=== PATIENT | male | born 1960 | race Caucasian/White ===

== ENCOUNTER 2021-09-29 12:27 | Inpatient (IN) | payer MEDICARE, SELFPAY ==
[2021-09-29 13:21] VITALS: BP 125/81; PULSE 88; RESP 20; TEMP 36.8; O2SAT 98
[2021-09-29 13:22] VITALS: BMI 22.6
[2021-09-29 14:00] VITALS: TEMP 36.8
--- NOTE | 2021-09-29 15:15 | PC.ADMIT ---
4661 S Admission Note: The patient,Agusto Madrid,60 y/o, was given written information regarding hospital policies, unit procedures and contact persons. Patient's smoking status: . Vital Signs - 8 hr 09/29/21 13:21 09/29/21 14:00 Temperature 98.2 F 98.2 F Pulse Rate 88 Respiratory Rate 20 H Blood Pressure 125/81 Pulse Oximetry 98 ADMITTED TO NPU FROM [facility]IA [facility] AND [facility]RETCHER. PT. STATES I'M HERE BECAUSE PEOPLE HAVE BEEN FOLLOWING FOR 5 YEARS AND I WANT THEM TO STOP. MY SISTER THINKS I'M LYING AND SENT ME OUT HERE ON A BUS. PT REPORTS HE IS ORIGINALLY FROM [place] AND JUST MOVED TO [facility] RECENTLY. PT STATES HE HAS USED DRUGS AND ALCOHOL FOR 45 YEARS AND NEVER HAD ANY INTENTION TO QUIT UNTIL NOW. PT IS NOTED TO HAVE MUMBLED SPEECH, EDENTULOUS AND VERY DIFFICULT TO UNDERSTAND. UDS WAS NEGATIVE. HE REPORTS HE LAST USED METH AND THC ONE DAY AGO. ORIENTATED TO UNIT. ALL QUESTIONS ANSWERED AND SUPPORT VOICED.
[2021-09-29] MEDS: OLANZapine 5 mg ODT PO (17:11)
--- NOTE | 2021-09-29 17:16 | PC.NURSE ---
PRN MEDICATIONS PT REPORTS ANXIETY AND IS VISIBLY ANXIOUS. ZYDIS 5 MG GIVEN ORDERED.
[2021-09-29 18:07] VITALS: PULSE 92; RESP 18; O2SAT 93
--- NOTE | 2021-09-29 18:08 | PC.NURSE ---
NEW ORDER PT TO NURSES STATION TO REPORT HE TAKES ALBUTEROL, NEBULIZERS AND IBUPROFEN. REPORTS THE IBUPROFEN IS FOR HIS ARTHRITIS AND ALBUTEROL AND NEBULIZERS FOR HIS COPD. NOTIFIED DR. REICH OF ABOVE. NEW ORDERS RECEIVED FOR RESPIRATORY ASSESS AND TREAT, ALBUTEROL 2 PUFFS Q 4 HOUR PRN SOD AND IBUPROFEN 600 MG 1 TAB PO Q 6HOURS PRN PAIN. NOTIFIED RESPIRATORY THERAPY AND HERE TO ASSESS. NEW ORDERS PLACED. PT NOTIFIED OF NEW ORDERS. ALL QUESTIONS ANSWERED AND SUPPORT VOICED.
[2021-09-29 20:23] VITALS: BP 118/78; PULSE 90; RESP 18; O2SAT 94
[2021-09-29] MEDS: trazodone 50 mg Tablet PO (20:53)
--- NOTE | 2021-09-29 21:31 | PC.NURSE ---
PT IN ROOM MOSTLY. CALM UPON APPROACH. REPORTS AH. REQUESTED AND TOOK PRN TRAZODONE FOR SLEEP.
[2021-09-30] MEDS: hyDROXYzine 25 mg Capsule 50 MG PO ×2 (01:22→08:42)
[2021-09-30 06:00] VITALS: BP 122/74; PULSE 81; RESP 18; O2SAT 98
[2021-09-30 09:29] VITALS: PULSE 89; RESP 17; O2SAT 97
[2021-09-30] MEDS: albuterol 8 gm MDI 2 PUFF INHALATION ×2 (09:29→11:15)
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
[2021-09-30 11:15] VITALS: PULSE 79; RESP 17; O2SAT 97
[2021-09-30 13:29] VITALS: BP 96/53; PULSE 73; RESP 18; TEMP 36.3; O2SAT 97
[2021-09-30] MEDS: OLANZapine 5 mg ODT PO (15:14)
[2021-09-30 20:10] VITALS: BP 128/78; PULSE 97; RESP 17; TEMP 36.6; O2SAT 96
[2021-09-30] MEDS: trazodone 50 mg Tablet PO (20:20)
[2021-10-01 05:24] VITALS: BMI 23.9
[2021-10-01 06:00] VITALS: BP 107/73; PULSE 80; RESP 16; TEMP 36.7; O2SAT 93
[2021-10-01] MEDS: ibuprofen 600 mg Tablet PO (06:22)
[2021-10-01] MEDS: hyDROXYzine 25 mg Capsule 50 MG PO ×3 (06:22→20:39)
[2021-10-01] MEDS: paliperidone ER 6 mg Tablet PO (09:04)
[2021-10-01 09:30] VITALS: PULSE 83; RESP 18; O2SAT 93
[2021-10-01] MEDS: albuterol 8 gm MDI 2 PUFF INHALATION (09:30)
[2021-10-01] MEDS: OLANZapine 5 mg ODT PO ×2 (12:05→23:41)
--- NOTE | 2021-10-01 12:08 | PC.NURSE ---
PRN PATIENT CAME TO NURSES STATION COMPLAINING OF ANXIETY. ZYDIS GIVEN.
[2021-10-01 14:00] VITALS: BP 117/78; PULSE 83; RESP 20; TEMP 36.6; O2SAT 94
--- NOTE | 2021-10-01 14:21 | W.PM.NPUPNS ---
Subjective NPU Subjective: Patient resents today reporting that he did okay with the Invega. He seems to be somewhat confused about the situation with his house and his family members. He denied any side effects or any other concerns. He reports that he is eating and sleeping okay and denies any other issues of concern. Mental Status Exam MSE Comments: This is a well nourished, well developed white male in hospital scrubs with adequate grooming and eye contact. No abnormal movements except for mild psychomotor agitation. Mostly cooperative with exam in mild distress. Speech was mumbly and normal rate and volume. Mood described as okay, affect slightly subdued still confused. Thought process, organized. Thought content: patient denies any suicidal or homicidal ideation, he endorses paranoia but no other delusions noted, and denies any current auditory or visual hallucinations but does report auditory hallucinations occasionally. Attention and concentration are intact and memory is reliable but none were formally tested. He is alert and oriented three times. Insight and judgment are fair. Impulse control is limited. Vitals/I&O/Wt Last Vital Signs Temp 98.0 F 10/01/21 06:00 Pulse 83 10/01/21 09:30 Resp 18 10/01/21 09:30 BP 107/73 10/01/21 06:00 Pulse Ox 93 10/01/21 09:30 Weight last 48 hrs Weight 67.245 kg A&P Assessment and plan (1) Psychosis: Status: Acute (2) Methamphetamine use disorder, severe: Status: Acute (3) Major depressive disorder: Status: Acute (4) PTSD (post-traumatic stress disorder): Status: Acute Plan This is a 60 year old white male with a long history of trauma, addiction which is active, and depression as well as significant legal history who presents off of his medications, open to restarting medications. Continue current medications. Will started Invega 6 mg po qam and monitor for improvement and consideration for restarting other medications. Encourage individual, group and milieu therapy Continue q-15 minute check for safety Recommend sober living treatment at the highest level of care to which the patient is willing to commit. Involuntary Hold Information 96 Hour Hold: 96 Hour Involuntary Admission: No Attestations NPU Medical Necessity Statement*: Inpatient hospitalization is medically necessary and the clinically appropriate intervention at this time. We will monitor medications and make changes as indicated. Likely length of stay is three to five days. Coding Level of Care Code Acute Electric Welder Helper for g Fwd Diagnoses Psychosis F29 Methamphetamine use disorder, severe F15.20 Major depressive disorder F32.9 PTSD (post-traumatic stress disorder) F43.10
[2021-10-01 20:02] VITALS: BP 112/77; PULSE 84; RESP 20; TEMP 36.7; O2SAT 96
[2021-10-01] MEDS: trazodone 50 mg Tablet PO (20:40)
--- NOTE | 2021-10-01 21:50 | PC.NURSE ---
Pt came to the nurses desk at 2039 requesting his night meds. when advised he did not have any scheduled night meds, pt stated he had been getting meds for anxiety and sleep. pt was then advised that, yes, that he has meds available to given him, he would have to ask for them as they are PRN meds. Trazodone 50mg po and Vistaril 50mg po given at 2039. Pt is resting quietly at this time.
--- NOTE | 2021-10-01 23:42 | PC.NURSE ---
PT CAME TO NURSES DESK REQUESTING ADDITION ANXIETY MED. ZYPREXA ZYDIS 5MG SL GIVEN.
[2021-10-02 06:00] VITALS: BP 113/78; PULSE 97; RESP 16; TEMP 36.4; O2SAT 94
[2021-10-02] MEDS: hyDROXYzine 25 mg Capsule 50 MG PO ×2 (06:34→11:24)
[2021-10-02] MEDS: paliperidone ER 6 mg Tablet PO (08:09)
[2021-10-02 10:18] VITALS: PULSE 76; RESP 17; O2SAT 96
[2021-10-02] MEDS: albuterol 8 gm MDI 2 PUFF INHALATION ×3 (10:18→21:24)
[2021-10-02 14:00] VITALS: BP 104/72; PULSE 92; RESP 17; TEMP 36.7; O2SAT 96
[2021-10-02 15:41] VITALS: PULSE 92; RESP 17; O2SAT 97
[2021-10-02] MEDS: ibuprofen 600 mg Tablet PO (16:16)
[2021-10-02] MEDS: OLANZapine 5 mg ODT PO (16:17)
--- NOTE | 2021-10-02 16:18 | PC.NURSE ---
PPRN MEDICATIONS PT C/O ANXIETY THROUGHOUT THE DAY. RECEIVED VISTARIL ORDERED THEN LAID DOWN THE MAJORITY OF THE DAY THIS AFTERNOON REPORTED HE WAS ANXIOUS AGAIN AND NEEDED SOMETHING FOR ANXIETY. ZYDIS 5 MG GIVEN ORDERED.
--- NOTE | 2021-10-02 17:10 | P.NPUPN_ITS ---
Subjective NPU Subjective: This is a well nourished, well developed white male in hospital scrubs with adequate grooming and eye contact. No abnormal movements except for mild psychomotor agitation. Mostly cooperative with exam in mild distress. Speech was mumbly and normal rate and volume. Mood described as a little better, affect slightly subdued and still confused.? Thought process, organized. Thought content: patient denies any suicidal or homicidal ideation, he endorses paranoia but no other delusions noted, and denies any current auditory or visual hallucinations but does report auditory hallucinations occasionally. Attention and concentration are intact and memory is reliable but none were formally teste d. He is alert and oriented three times. Insight and judgment are fair. Impulse control is limited. Vitals/I&O/Wt Last Vital Signs Temp 98.0 F 10/02/21 14:00 Pulse 92 10/02/21 15:41 Resp 17 10/02/21 15:41 BP 104/72 10/02/21 14:00 Pulse Ox 97 10/02/21 15:41 Weight last 48 hrs Weight 67.245 kg A&P Assessment and plan (1) PTSD (post-traumatic stress disorder): Status: Acute (2) Major depressive disorder: Status: Acute (3) Methamphetamine use disorder, severe: Status: Acute (4) Psychosis: Status: Acute Plan This is a 60 year old white male with a long history of trauma, addiction which is active, and depression as well as significant legal history who presents off of his medications, open to restarting medications. Continue current medications. We started Invega 6 mg po qam and monitor for improvement and consideration for restarting other medications. Encourage individual, group and milieu therapy Continue q-15 minute check for safety Recommend sober living treatment at the highest level of care to which the patient is willing to commit. Involuntary Hold Information 96 Hour Hold: 96 Hour Involuntary Admission: No Attestations NPU Medical Necessity Statement*: Inpatient hospitalization is medically necessary and the clinically appropriate intervention at this time. We will monitor medications and make changes as indicated. Likely length of stay is 2-4 days. Coding Level of Care Code Acute Nursing Surgical Services Director for Arnaldo Antoine Diagnoses PTSD (post-traumatic stress disorder) F43.10 Major depressive disorder F32.9 Methamphetamine use disorder, severe F15.20 Psychosis F29
[2021-10-02 20:13] VITALS: BP 100/66; PULSE 78; RESP 20; TEMP 36.4; O2SAT 96
[2021-10-02] MEDS: trazodone 50 mg Tablet PO (20:20)
[2021-10-02 21:25] VITALS: PULSE 86; RESP 16; O2SAT 96
[2021-10-03 06:00] VITALS: BP 121/82; PULSE 105; RESP 16; TEMP 36.6; O2SAT 94
[2021-10-03] MEDS: hyDROXYzine 25 mg Capsule 50 MG PO ×3 (06:54→19:47)
[2021-10-03] MEDS: ibuprofen 600 mg Tablet PO ×2 (06:54→13:00)
[2021-10-03] MEDS: paliperidone ER 6 mg Tablet PO (08:27)
[2021-10-03] MEDS: albuterol 8 gm MDI 2 PUFF INHALATION ×2 (08:55→21:58)
[2021-10-03 08:58] VITALS: PULSE 105; RESP 16; O2SAT 94
--- NOTE | 2021-10-03 13:01 | PC.NURSE ---
PRN VISTARIL 50 MG GIVEN PO PER PT C/O STATED ANXIETY
[2021-10-03 13:51] VITALS: BP 108/71; PULSE 93; RESP 17; TEMP 36.3; O2SAT 93
--- NOTE | 2021-10-03 16:50 | W.PM.NPUPNS ---
Subjective NPU Subjective: Patient resents today reporting that he is having no side effects from the Invega and reports he feels that it works really well for him. He reports a desire to get connected with his supports in the community where he was and denies any current concerns. We discussed the Invega Sustenna injection and the possibility of using that to assist in his adherence and he understood but is currently not interested in injection at this time. We agreed that we would work with the social work team in the morning and identify if there is a place for him to return to consider that in the next 48 hours. Mental Status Exam MSE Comments: This is a well nourished, well developed white male in hospital scrubs with adequate grooming and eye contact. No abnormal movements except for mild psychomotor agitation. Mostly cooperative with exam in mild distress. Speech was mumbly and normal rate and volume. Mood described as I feel better now, affect slightly subdued and less confused.? Thought process, organized. Thought content: patient denies any suicidal or homicidal ideation, he endorses paranoia but no other delusions noted, and denies any current auditory or visual hallucinations but does report auditory hallucinations occasionally. Attention and concentration are intact and memory is reliable but none were formally tested. He is alert and oriented three times. Insight and judgment are fair. Impulse control is limited. Vitals/I&O/Wt Last Vital Signs Temp 97.3 F L 10/03/21 13:51 Pulse 93 10/03/21 13:51 Resp 17 10/03/21 13:51 BP 108/71 10/03/21 13:51 Pulse Ox 93 10/03/21 13:51 A&P Assessment and plan (1) PTSD (post-traumatic stress disorder): Status: Acute (2) Major depressive disorder: Status: Acute (3) Methamphetamine use disorder, severe: Status: Acute (4) Psychosis: Status: Acute Plan This is a 60 year old white male with a long history of trauma, addiction which is active, and depression as well as significant legal history who presents off of his medications, open to restarting medications. Continue current medications. We started Invega 6 mg po qam and monitor for improvement and consideration for restarting other medications. Encourage individual, group and milieu therapy Continue q-15 minute check for safety Recommend sober living treatment at the highest level of care to which the patient is willing to commit. Involuntary Hold Information 96 Hour Hold: 96 Hour Involuntary Admission: No Attestations NPU Medical Necessity Statement*: Inpatient hospitalization is medically necessary and the clinically appropriate intervention at this time. We will monitor medications and make changes as indicated. Likely length of stay is 1-3 days. Coding Level of Care Code Acute Chief Engineer Drilling And Recovery for g Fwd Diagnoses PTSD (post-traumatic stress disorder) F43.10 Major depressive disorder F32.9 Methamphetamine use disorder, severe F15.20 Psychosis F29
[2021-10-03] MEDS: trazodone 50 mg Tablet PO (19:49)
[2021-10-03 21:20] VITALS: BP 111/79; PULSE 92; RESP 18; TEMP 36.3; O2SAT 95
[2021-10-03 21:57] VITALS: PULSE 60; RESP 16; O2SAT 96
[2021-10-04 06:00] VITALS: BP 104/75; PULSE 104; RESP 18; TEMP 36.7; O2SAT 94
[2021-10-04] MEDS: hyDROXYzine 25 mg Capsule 50 MG PO (06:49)
[2021-10-04] MEDS: ibuprofen 600 mg Tablet PO (06:49)
[2021-10-04] MEDS: paliperidone ER 6 mg Tablet PO (08:24)
[2021-10-04 10:00] VITALS: PULSE 67; RESP 16; O2SAT 96
[2021-10-04] MEDS: albuterol 8 gm MDI 2 PUFF INHALATION (10:00)
--- NOTE | 2021-10-04 11:51 | DCPLANNER ---
IMM completed with pt on 10/04/21 @ 1154am. Pt was given a copy of rights and stated he understood his rights.
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
[2021-10-04 14:18] VITALS: PULSE 67; RESP 16; O2SAT 96
== END 2021-10-04 14:25 | disposition home or self-care (01) | DRG 885 ==
PROVIDERS: Admitting Provider Psychiatry & Neurology Psychiatry; Visit Provider Psychiatry & Neurology Psychiatry
DX: F29 Unspecified psychosis not due to a substance or known physiological condition (principal); R45.851 Suicidal ideations; F15.20 Other stimulant dependence, uncomplicated; F32.9 Major depressive disorder, single episode, unspecified; F17.210 Nicotine dependence, cigarettes, uncomplicated; F10.10 Alcohol abuse, uncomplicated; F12.10 Cannabis abuse, uncomplicated; J44.9 Chronic obstructive pulmonary disease, unspecified; F43.10 Post-traumatic stress disorder, unspecified
CPT/HCPCS: 94640; 97150; 97165; J3535

== ENCOUNTER 2021-10-28 12:04 | Inpatient (IN) | payer MEDICARE, SELFPAY ==
[2021-10-28] VITALS (23 sets, daily range): BP systolic 95–139; BP diastolic 66–86; PULSE 65–88; RESP 14–27; TEMP 36.4–37.2; O2SAT 88–100; BMI 23.2
--- NOTE | 2021-10-28 12:57 | CTR_ITS ---
PROCEDURE INFORMATION: Exam: CT Head Without Contrast Exam date and time: 10/28/2021 1:04 PM Age: 60 years old Clinical indication: Other: Unresponsive TECHNIQUE: Imaging protocol: Computed tomography of the head without contrast. Radiation optimization: All CT scans at this facility use at least one of these dose optimization techniques: automated exposure control; mA and/or kV adjustment per patient size (includes targeted exams where dose is matched to clinical indication); or iterative reconstruction. COMPARISON: No relevant prior studies available. RADIATION DOSE METRICS: Total DLP (mGy-cm): 730.68 FINDINGS: Brain: No hemorrhage. No edema. Moderate diffuse cerebral atrophy. No mass effect. Cerebral ventricles: No ventriculomegaly. Paranasal sinuses: Visualized sinuses are unremarkable. No fluid levels. Mastoid air cells: Visualized mastoid air cells are well aerated. Bones/joints: Unremarkable. No acute fracture. Soft tissues: Unremarkable. CT/CT head wo con* [id number] IMPRESSION: No acute intracranial abnormality.
--- NOTE | 2021-10-28 12:57 | PM.CONSULT ---
Providers/Reason For Consult Attending Physician: Terry Hurt MD History of Present Illness History of Present Illness Agusto Madrid is a 60 year old male Medications/Allergies Home Medications Medication Instructions Recorded Confirmed Last Taken Type No Known Home Medications 09/29/21 09/29/21 Unknown History paliperidone 6 mg tablet,extended 6 mg PO DAILY 30 Days #30 tab 10/04/21 Unknown Rx release 24 hr trazodone 50 mg tablet 50 mg PO BEDTIME PRN 30 Days #30 10/04/21 Unknown Rx tab Allergies Allergy/AdvReac Type Severity Reaction Status Date / Time No Known Allergies Allergy Verified 09/29/21 13:25 Coding Level of Care Code Acute Salmon Gillnet Vessel Operator for Arnaldo Antoine
--- NOTE | 2021-10-28 12:58 | PC.NURSE ---
Patient arrived to unit brought in by ambulance at 1203. Patient was oriented to self. Patient was resistive to care when getting VS taken. Patient speech was garbled and patient was unable to answer assessment questions. He was difficult to redirect. Patient fell off bench to floor. This nurse noted that patient was laying on right side. Patient was assessed and ambulated to his room. Oxygen saturation was 88% on RA. Obtained oxygen tank and placed on O2 at 2L. Orders received for respiratory to come evaluate and treat patient. Patient physical assessment done. Patient speech was garbled. He was alert to name and birthday. Pupils were sluggish to react to light. Patient posterior lungs sounds were diminished throughout. Expiratory wheezes noted to upper lobes. Heart rate 80's. RT came to evaluate patient. FREE LANCE ARTIST placed as 1:1 sitter till sitter arrived. Sitter came to hallway with concern for patient. On arrival to room patient was not responding to verbal stimuli. Patient did respond to sternal rub. A rapid response was called.
--- NOTE | 2021-10-28 12:59 | ECG_ITS ---
[facility] Test Date: 2021-10-28 Pat Name: Agusto Madrid Department: Room: [facility] Gender: Male Orthopedically Impaired Teacher: : 1960 Requested By: Perez Menendez Order Number: [id number] Rafa MD: Reginaldo Thompson M.D. Measurements Intervals [place] Rate: 70 P: 63 [place]: 195 QRS: 22 QRSD: 107 T: 64 QT: 428 QTc: 462 Interpretive Statements SINUS RHYTHM No previous ECG available for comparison Electronically Signed On 10-29-2021 12:30:21 CDT by Reginaldo Thompson M.D. [id number]
[2021-10-28 13:07] LABS: ABG PCO2 52.1 mmHg (35-45); ABG PH Result 7.41 (7.35-7.45); Alveolar-Arterial Oxygen Gradi 1.2 mmHg (5-10); Arterial Blood Gas Hematocrit 39.5 % (42-52); Base Excess ABG 6.9 mmol/L (-2.0-2.0); Blood Gas Allen Test Pos; Blood Gas Operator Identificat CAK; Blood Gas Sample Site Brachial, left; Blood Gas Sample Type Arterial; Carboxyhemoglobin 2.5 %THgb (0.4-20.1); HCO3 ABG 32.9 mmol/L (22-26); HGB O2 Sat 92.9 % (95-100); Ionized Calcium Level - ABG 1.2 mmol/L (1.1-1.4); Methemoglobin 0.8 % (0.4-1.5); Oxygen Device NC; Oxygen Saturation ABG 96.1; PO2 ABG 76.4 mmHg (80.0-100.0); Potassium Level - ABG 3.7 mmol/L (3.5-5.0); Total Hemoglobin 12.9 g/dL (14-18)
[2021-10-28] MEDS: dextrose 50% syringe 50 mL 25 ML IVP (13:35)
[2021-10-28] MEDS: naloxone 0.4 mg/ml SDV IVP (13:35)
[2021-10-28 13:54] LABS: Basophils % 0.4 %; Eosinophils # 0.3 10^3/uL (0.0-0.8); Eosinophils % 4.1 %; Hematocrit 39.7 % (42.0-52.0); Lymphocytes # 1.5 10^3/uL (0.8-4.8); Lymphocytes % 21.1 %; Mean Corpuscular HGB Conc 32.7 g/dL (30.0-36.0); Mean Corpuscular Volume 82.4 fl (80-94); Mean Platelet Volume 8.7 fL (7.4-10.4); Monocytes # 0.7 10^3/uL (0.2-0.9); Monocytes % 9.2 %; Neutrophils % 64.8 %; Nucleated Red Blood Cells % 0 %; Platelet Count 269 10^3/cmm (130-400); Red Blood Count 4.82 10^6/uL (4.1-5.3); Red Cell Distribution Width 14.1 % (12.1-15.1); White Blood Count 7.3 10^3/uL (4.0-10.0)
[2021-10-28 14:14] LABS: Lactic Sepsis W/Reflex 0.7 mmol/L (0.5-2.2)
--- NOTE | 2021-10-28 14:16 | P.HP_ITS ---
Providers/Chief Complaint Admitting Physician: Terry Hurt MD Chief Complaint: SI/96 hour hold History of Present Illness Agusto Madrid is a 60 year old male who has had previous admission to Neuropsych Unit for psychosis and addiction, he was tested positive for methamphetamine and marijuana, he was transferred to our Neuropsych Unit today for his bizarre behavior and psychotic symptoms, he has been homeless, he was discharged to a homeless senior care, rapid response was called when patient was found unresponsive, when I arrived, patient was able to tell me his date of and his name however his speech was not clear, he was able to follow my commands he was moving all of his extremities, code stroke was not called, blood gas at the bedside was 85 mg/dL, I requested ABG, CBC, CMP prolactin, lactic acid and stat CT head. As per the nursing staff he just arrived to Neuropsych Unit 50 minutes ago and as per the EMS his behavior started changing 50 minutes before his arrival. He has been given Haldol and other antipsychotics. His blood pressure 132/70, afebrile, doing well on 3 L cannula. I requested his transfer to ICU after CT head stat I reexamined him in the ICU, he is able to follow my commands, squeezing my fingers, he is able to lift his legs on command As per the neuropsych staff this seems to be his baseline mentation His pupils were constricted however responsive to light, they are not asymme trical CT head unremarkable CBC unremarkable Requested alcohol level, prolactin, EKG showing sinus rhythm Afebrile Blood pressure stable I requested 1 amp of bicarb and a dose of Narcan He will stay on one-to-one supervision Right now he is not on 96-hour hold as per Dr. Hurt Requested UA, Will do chest x-ray Dr. Hurt requested me to admit the patient and then transfer him once he is medically cleared When I was walking out of the room was notified by NPU staff that his speech is always garbled, that is how he normally talks and is not a new change to them Review of Systems General: Reports: ROS unobtainable due to medical condition (Delirium) Medications/Allergies Home Medications Medication Instructions Recorded Confirmed Last Taken Type No Known Home Medications 09/29/21 09/29/21 Unknown History paliperidone 6 mg tablet,extended 6 mg PO DAILY 30 Days #30 tab 10/04/21 Unknown Rx release 24 hr trazodone 50 mg tablet 50 mg PO BEDTIME PRN 30 Days #30 10/04/21 Unknown Rx tab Allergies Allergy/AdvReac Type Severity Reaction Status Date / Time No Known Allergies Allergy Verified 09/29/21 13:25 PFSH Acute PFSH: Medical History COPD (chronic obstructive pulmonary disease) Femur fracture Major depressive disorder Methamphetamine use disorder, severe PTSD (post-traumatic stress disorder) Surgical History Surgical history unknown Family History (Updated 10/28/21 @ 14:23 by Perez Menendez MD) Other Dementia Suicide Social History (Updated 10/28/21 @ 14:23 by Perez Menendez MD) Smoking and tobacco status: current every day smoker Alcohol intake: current Substance/Drug Use: current Housing: Homeless Vitals/I&O/Wt Last Vital Signs Temp 98.7 F 10/28/21 12:10 Pulse 80 10/28/21 12:10 Resp 18 10/28/21 12:10 BP 132/78 10/28/21 12:10 Pulse Ox 96 10/28/21 13:24 Weight last 48 hrs Weight 65.329 kg Physical Exam Narrative: Middle-age male He is able to follow commands Is able to squeeze my fingers on command Able to lift his legs in the air I do not appreciate any weakness Pupils are constricted however reactive to light No asymmetry of pupils No abnormal eye movement Looks dehydrated and malnourished Does need a lot of tactile stimulation to get a response Currently saturating well on 3 L nasal cannula Blood pressure is stable Sinus rhythm Abdomen soft Nonlabored breathing No audible stridor or wheezing He was able to tell me his name and date of however speech was not clear Dry mucous membranes Data : 10/28/21 13:36 10/28/21 13:36 A&P Assessment and plan (1) Substance abuse: Status: Acute (2) Delirium: Status: Acute (3) Catatonia: Status: Acute Plan I examined the patient and Neuropsych Unit after rapid response in room 129 Patient was admitted to Neuropsych Unit for psychotic behavior, he is well-known to Dr. Hurt Polysubstance abuse Delirium Dehydration Check TSH, B12 Hemodynamically stable No signs of stroke He is able to follow commands No weakness or signs of seizure No abnormal eye movement Requested alcohol level Drug screen Start thiamine, folic acid He was given a dose of Narcan which improved his mentation to some extent Amp of D50 given for hypoglycemia Check hemoglobin A1c For now I will keep him on pur?ed diet, request speech therapy Hold antipsychotics and antidepressants And gave her agitation I would use Geodon EKG showing sinus rhythm Plan to transfer him back to Neuropsych Unit once he is medically cleared ABG did not show any signs of hypercapnia His delirium could be related to polysubstance abuse and dehydration Is full code History of suicidal ideation and psychotic behavior I was told he was discharged to a homeless senior care last time Family contact number Felix [phone] Attestations Medical Necessity Statement*: More than 2 midnights anticipated in ICU for delirium, polysubstance abuse Time Spent in Patient Care: 50 Coding Level of Care Code Acute Websphere Commerce Architect for Arnaldo Antoine Diagnoses Substance abuse F19.10 Delirium R41.0 Catatonia F06.1
[2021-10-28 14:18] LABS: Ammonia 23 umol/L (16-60)
[2021-10-28 14:25] LABS: Alanine Aminotransferase 25 U/L (0-41); Albumin Level 3.7 g/dL (3.5-5.2); Alkaline Phosphatase 86 IU/L (40-130); Aspartate Amino Transferase 39 U/L (0-40); Blood Urea Nitrogen 14 mg/dL (8-23); Calcium 9.2 mg/dL (8.5-10.5); Carbon Dioxide 33 mmol/L (22-29); Chloride 100 mmol/L (98-107); Globulin 3.5 g/dL (1.3-4.6); Glomerular Filtration Rate 114.3 mL/min (90-130); Glucose 100 mg/dL (65-115); Osmolality Calculated 289 mOsm/kg (285-295); Prolactin 45.29 ng/mL (4.0-15.2); Sodium 139 mmol/L (136-145); Total Bilirubin 0.3 mg/dL (0.15-1.2); Total Protein 7.2 g/dL (6.6-8.7)
[2021-10-28 14:26] LABS: Alcohol Level < 10 mg/dL (0-10)
--- NOTE | 2021-10-28 14:29 | XRR_ITS ---
PROCEDURE INFORMATION: Exam: XR Chest Exam date and time: 10/28/2021 2:49 PM Age: 60 years old Clinical indication: Other: Delirium TECHNIQUE: Imaging protocol: Radiologic exam of the chest. Views: 1 view. COMPARISON: No relevant prior studies available. FINDINGS: Lungs: Coarsening of the lung parenchyma with biapical scarring. No consolidation. Pleural spaces: Unremarkable. No pleural effusion. No pneumothorax. Heart/Mediastinum: Unremarkable. No cardiomegaly. Bones/joints: Visualized osseous structures are intact. XR/XR chest 1V portable [id number] IMPRESSION: No acute findings.
[2021-10-28 14:42] LABS: Add Urine Microscopic? NO; Charge for UA Resulting for Rev
[2021-10-28 14:58] LABS: Bilirubin Urine Neg (Negative); Blood Urine Neg (Negative); Glucose Urine UA Norm (Normal); Ketones Urine Negative (Negative); Leukocyte Esterase Urine Negative (Negative); Nitrate Urine Negative (Negative); Protein Urine Neg (Negative); Urine Appearance Clear (CLEAR); Urine Color Yellow (Yellow); Urobilinogen Urine Norm (Negative); pH Urine 7 (5-7)
--- NOTE | 2021-10-28 14:59 | ECG_ITS ---
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 Measurements Intervals [place] Rate: 69 P: 24 GA: 172 QRS: 5 QRSD: 112 T: 61 QT: 435 QTc: 468 Interpretive Statements SINUS RHYTHM MODERATE INTRAVENTRICULAR CONDUCTION DELAY [110+ ms QRS DURATION] Compared to ECG 10/28/2021 13:20:49 Intraventricular conduction delay now present Electronically Signed On 10-29-2021 13:28:15 CDT by Reginaldo Thompson M.D. [email or web address] [id number]
[2021-10-28] MEDS: dextrose 5%-sod chloride 0.9% 1,000 ML 75 ML IV (15:23)
[2021-10-28 15:25] LABS: Estmated Average Glucose 111; Hemoglobin A1C 5.5 % (4.0-6.0)
[2021-10-28 15:55] LABS: Troponin(5th) Baseline 6 ng/L (0-15)
[2021-10-28 16:04] LABS: Amphetamines Screen Urine Positive (Negative); Barbiturates Screen Urine Negative (Negative); Benzodiazepines Screen Urine Positive (Negative); Cocaine Screen Urine Negative (Negative); Opiate Screen Urine Negative (Negative); PCP Screen Urine Negative (Negative); THC Screen Urine Positive (Negative)
[2021-10-28 16:11] LABS: Thyroid Stimulating Hormone 1.83 uIU/mL (0.27-4.20)
[2021-10-28 16:15] LABS: Troponin 5 2HR Delta 0 ABS# (0-10)
--- NOTE | 2021-10-28 18:59 | ECG_ITS ---
[facility] Test Date: 2021-10-28 Pat Name: Agusto Madrid Department: Room: [facility] Gender: Male Pediatric Physician: : 1960 Requested By: Perez Menendez Order Number: [id number] Reading MD: Reginaldo Thompson M.D. Measurements Intervals [place] Rate: 65 P: 62 OR: 198 QRS: 10 QRSD: 118 T: 67 QT: 443 QTc: 463 Interpretive Statements SINUS RHYTHM MODERATE INTRAVENTRICULAR CONDUCTION DELAY [110+ ms QRS DURATION] Compared to ECG 10/28/2021 14:42:22 No significant changes Electronically Signed On 10-29-2021 13:26:47 CDT by Reginaldo Thompson M.D. [email or web address] general [id number]
[2021-10-28 20:34] LABS: Troponin 5 6HR Delta 0 ng/L (0-12)
[2021-10-29] VITALS (9 sets, daily range): BP systolic 93–127; BP diastolic 61–87; PULSE 68–84; RESP 16–29; TEMP 36.2–36.9; O2SAT 89–96
[2021-10-29] MEDS: dextrose 5%-sod chloride 0.9% 1,000 ML 75 ML IV (04:35)
[2021-10-29 05:59] LABS: Basophils % 0.5 %; Eosinophils # 0.3 10^3/uL (0.0-0.8); Eosinophils % 3.5 %; Hematocrit 43.4 % (42.0-52.0); Hemoglobin 14.1 g/dL (11.7-16.6); Lymphocytes # 1.6 10^3/uL (0.8-4.8); Mean Corpuscular HGB Conc 32.5 g/dL (30.0-36.0); Mean Corpuscular Hemoglobin 26.8 pg (28.0-34.0); Mean Corpuscular Volume 82.5 fl (80-94); Mean Platelet Volume 9.3 fL (7.4-10.4); Monocytes # 0.8 10^3/uL (0.2-0.9); Monocytes % 8.9 %; Neutrophils # 5.73 10^3/uL (1.8-7.7); Neutrophils % 67.6 %; Nucleated Red Blood Cells % 0 %; Platelet Count 279 10^3/cmm (130-400); Red Blood Count 5.26 10^6/uL (4.1-5.3); Red Cell Distribution Width 14.2 % (12.1-15.1); White Blood Count 8.5 10^3/uL (4.0-10.0)
[2021-10-29 06:23] LABS: Anion Gap 12.8 (5-19); Blood Urea Nitrogen 10 mg/dL (8-23); Calcium 8.6 mg/dL (8.5-10.5); Carbon Dioxide 31 mmol/L (22-29); Chloride 99 mmol/L (98-107); Glomerular Filtration Rate 136.5 mL/min (90-130); Glucose 89 mg/dL (65-115); Osmolality Calculated 287 mOsm/kg (285-295); Potassium 3.8 mmol/L (3.5-5.1); Sodium 139 mmol/L (136-145)
--- NOTE | 2021-10-29 06:40 | P.PN_ITS ---
Subjective Subjective: Patient did well overnight, he was able to eat, history requiring 2 L of oxygen, I have requested nurse to see how he does on room air He has history of COPD Drug screen reviewed CBC BMP unremarkable No fever Chest x-ray unremarkable CT head unremarkable I have started him on Keppra Vitals/I&O/Wt Last Vital Signs Temp 98.4 F 10/29/21 04:00 Pulse 77 10/29/21 06:00 Resp 27 H 10/29/21 06:00 BP 93/61 10/29/21 06:00 Pulse Ox 90 10/29/21 06:00 10/28/21 10/28/21 10/29/21 14:59 22:59 06:59 Intake Total 110 / 110 1245 / 1355 Output Total 1550 / 1550 800 / 2350 Balance -1440 / -1440 445 / -995 Weight last 48 hrs Weight 66.134 kg Weight 65.329 kg Physical Exam Narrative: Patient has garbled speech which is chronic Nonfocal neuro exam Does wake up appropriately Tolerate his diet On 2 L nasal cannula Nonlabored breathing S1, S2 Euvolemic Abdomen soft Data : 10/29/21 04:44 10/29/21 04:44 A&P Assessment and plan (1) Catatonia: Status: Acute (2) Substance abuse: Status: Acute (3) Delirium: Status: Acute Plan Delirium like related to polysubstance abuse Drug screen positive for marijuana methamphetamine and benzodiazepine No signs of stroke Nonfocal neuro exam Prolactin high which could be related to stress with underlying multiple comorbid condition discontinue Keppra hemodynamically stable Oxygen dependent COPD Currently requiring 2 L at baseline Has history of smoking No signs of pneumonia on chest x-ray We will check his O2 saturation on room air Dysphagia diet previous history of garbled speech: Speech therapy recommended modified diet He can be transferred to neuropsych later today Full code Attestations Medical Necessity Statement*: Patient can be transferred to neuropsych later today Time Spent in Patient Care: 30 Coding Level of Care Code Acute Music Education Adjunct Professor for Arnaldo Antoine Diagnoses Catatonia F06.1 Substance abuse F19.10 Delirium R41.0
--- NOTE | 2021-10-29 06:42 | PC.NURSE ---
Dr. Menendez called to obtain update on ICU room 4. Dr. Menendez wants to transfer pateint back to NPU, order given to place patient on Room air and if O2 saturations stay 89 or above he will transfer patient back to NPU.
[2021-10-29 07:00] LABS: Vitamin B12 346 pg/mL (232-1245)
--- NOTE | 2021-10-29 07:00 | PC.NURSE ---
change of shift Report received at bedside from Yuliet NAM. Pt awoke to verbal stimuli. Alert and oriented to self and situation upon awakening. No c/o pain. IV noted to the left wrist. Will remain 1:1 in the ICU due to 96 hour hold status. This nurse is sitter at bedside.
--- NOTE | 2021-10-29 07:15 | PC.NURSE ---
Dr. Blu Hurt on the unit to see patient and will accept patient back to NPU once cleared by medical. Confirmed that the NPU unit can take the patient if he requires oxygen with sitter orders.
--- NOTE | 2021-10-29 07:40 | PC.NURSE ---
Dr. Shon Menendez on unit to assess patient. Will stop keppra and possibly transfer back to NPU today.
[2021-10-29] MEDS: folic acid 1 mg Tablet PO (10:48)
--- NOTE | 2021-10-29 13:47 | PC.NURSE ---
report called to Josefina RN/transfering to npu via wheelchair with security to accompany
[2021-10-30 05:58] VITALS: BP 102/69; PULSE 78; RESP 18; TEMP 36.6; O2SAT 93
[2021-10-30 08:00] VITALS: PULSE 74; RESP 16; O2SAT 92
--- NOTE | 2021-10-30 09:48 | PC.NURSE ---
SCHEDULED 0900 MEDS HELD D/T LEVEL OF SEDATION & PT UNABLE TO SAFELY SWALLOW MEDICATIONS
--- NOTE | 2021-10-30 11:56 | P.NPUHP_ITS ---
Providers/Chief Complaint Admitting Physician: Perez Menendez MD Chief Complaint: SI/96 hour hold HPI NPU History of Present Illness Agusto Madrid is a 60 year old male who presented to the outside hospital with issues of suicidal ideation, behavior and drug use. He was transferred to [facility] and initially admitted to the neuropsychiatric unit but within moments of being admitted he had a fall and rapid response called. He was taken to the ICU and monitored for couple days and now has been transferred back to the neuropsychiatric unit for definitive treatment of his psychiatric issues. He presents today reporting that he feels as if people are following him around. He reports he does not have any known allergies to medications and is not currently taking any psychiatric medications. He reports that he has been psychiatrically hospitalized 10 to 15 times from 2004 up to a couple of months ago at this facility. He reports suicide attempts and did not report any self-injurious beh aviors when questioned. He denies any homicidal ideation. He reports that the longest time he was inpatient was 2.5 to 3 weeks due to a suicide attempt. He reports he had outpatient services in the past but could not recall how long it has been since he has seen them. He reports he is currently clean but reports methamphetamine and heroin which he last used 4 to 5 day ago and 5 months ago respectively. He reports half a pack of cigarettes a day and drinks alcohol occasionally. He denies any medications for addiction treatment and endorses that he can do it on his own. He reports he began first using around 25 years old. He reports that he was feeling that people were following him for his pr otection and reports recent methamphetamine use. He endorses continuing paranoia even when he is not actively using methamphetamine. He reports that he was told that he has people following him by police in [place] and if the patient told this senior grant writer how he was in communication he would be going to assisted. He endorses feelings of depression and reports the voices are telling him to hurt himself. He endorses problems with sleeping and endorses he doesn?t sleep at night. He reports the voices have gotten worse over time and reports he wants to return to [place]. Psychiatric History: As above. Substance Abuse History: As above Family History: He denies mental health issues or addiction issues on either side of the family. Developmental History: He did not report any developmental problems or learning delays during the interview with this senior grant writer. Psychosocial History: He reports his parents weren?t together when he was born and he did not know his biological father. He reports he has 8 siblings who are products of the same union. He denies any emotional, physical or sexual abuse in his childhood. He denies any other traumatic events. The highest grade he achieved was 8th grade and did not get his GED. He has been and once, has children in their late 30s, . 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 He is currently homeless. Legal History: He has been incarcerated for a total of 37 years ago, the last time of which was 5 years ago and the longest time of which was 6 years. Medical History: He reports he has had surgery on femur bone. Meds NPU Home Medications Medication Instructions Recorded Confirmed Last Taken Type paliperidone 6 mg tablet,extended 6 mg PO DAILY 30 Days #30 tab 10/04/21 10/29/21 Unknown Rx release 24 hr trazodone 50 mg tablet 50 mg PO BEDTIME PRN 30 Days #30 10/04/21 10/29/21 Unknown Rx tab Allergies Allergy/AdvReac Type Severity Reaction Status Date / Time No Known Allergies Allergy Verified 09/29/21 13:25 PFS NPU PFSH: Medical History COPD (chronic obstructive pulmonary disease) Femur fracture Major depressive disorder Methamphetamine use disorder, severe PTSD (post-traumatic stress disorder) Surgical History Surgical history unknown Family History (Updated 10/28/21 @ 14:23 by Perez Menendez MD) Other Dementia Suicide Social History (Updated 10/28/21 @ 14:23 by Perez Menendez MD) Smoking and tobacco status: current every day smoker Alcohol intake: current Substance/Drug Use: current Housing: Homeless Mental Status Exam MSE Comments: This is a well nourished, well developed white male looking older than his stated age in hospital scrubs with limited grooming and eye contact. Appeared at times to be excessively drowsy and required some verbal prompts to be awoken during the exam. No abnormal movements. Cooperative with exam in no acute distress. Speech was mumbled with decreased rate and volume and lack of enunciation. Mood described as down, affect is constricted in range. Thought process, linear, logical and fairly superficial. Thought content: patient denies any suicidal or homicidal ideation, reports knowing that police and others are following him, and endorses auditory hallucinations. Attention and concentration appeared limited and memory appeared somewhat reliable but none were formally tested. He was sometimes alert and oriented three times. Insight and judgment appear impaired. Impulse control is impaired. Vitals/I&O/Wt Last Vital Signs Temp 97.8 F 10/30/21 06:00 Pulse 78 10/30/21 06:00 Resp 18 10/30/21 06:00 BP 102/69 10/30/21 06:00 Pulse Ox 93 10/30/21 06:00 Weight last 48 hrs Weight 66.134 kg Data NPU : 10/29/21 04:44 10/29/21 04:44 A&P Assessment and plan (1) Catatonia: Status: Acute (2) Substance abuse: Status: Acute (3) Delirium: Status: Acute (4) Methamphetamine use disorder, severe: Status: Acute (5) PTSD (post-traumatic stress disorder): Status: Acute (6) Major depressive disorder, recurrent: Status: Acute Plan This is a 60 year old white male with a history of methamphetamine use and opiate use who presents today with significant active psychosis endorsing he wants to return home to [place] but somewhat open to psychiatric treatment. 1. Continue current medications 2. Encourage individual, group and milieu therapy 3. Continue q-15 minute check for safety 4. Recommend sober living treatment at the highest level of care to which the patient is willing to commit. Involuntary Hold Information 96 Hour Hold: 96 Hour Involuntary Admission: No Attestations NPU Medical Necessity Statement*: Inpatient hospitalization is medically necessary and the clinically appropriate intervention at this time. We will monitor medications and make changes as indicated. Patient will be in the hospital for over two midnights. Likely length of stay is four to five days. Coding Level of Care Code Acute Fork Truck Operator for [facility] Diagnoses Catatonia F06.1 Substance abuse F19.10 Delirium R41.0 Methamphetamine use disorder, severe F15.20 PTSD (post-traumatic stress disorder) F43.10 Major depressive disorder, recurrent F33.9
[2021-10-30 14:00] VITALS: BP 112/73; PULSE 82; RESP 17; TEMP 36.6; O2SAT 93
[2021-10-30 21:08] VITALS: PULSE 85; RESP 16; O2SAT 94
[2021-10-30 21:35] VITALS: BP 114/75; PULSE 73; RESP 18; TEMP 36.6; O2SAT 96
[2021-10-31 06:00] VITALS: BP 112/65; PULSE 83; RESP 18; TEMP 36.8; O2SAT 97
[2021-10-31 08:00] VITALS: PULSE 83; RESP 18; O2SAT 92
[2021-10-31] MEDS: thiamine 100 mg Tablet PO (08:46)
[2021-10-31] MEDS: folic acid 1 mg Tablet PO (08:46)
[2021-10-31] MEDS: multivitamin therapeutic Tablet 1 TAB PO (08:46)
[2021-10-31 09:46] VITALS: O2SAT 90; O2SAT 92
[2021-10-31 14:00] VITALS: BP 112/60; PULSE 68; RESP 18; TEMP 36.1; O2SAT 98
--- NOTE | 2021-10-31 17:56 | W.PM.NPUPNS ---
Subjective NPU Subjective: , Presents today with no significant changes and not much to add as a historian. He continues to have mostly mumbled speech and reports significant contributing thoughts. Not reporting any additional issues and appears to be sleeping well and eating fine. Mental Status Exam MSE Comments: This is a well nourished, well developed white male looking older than his stated age in hospital scrubs with limited grooming and eye contact. Appeared at times to be excessively drowsy and required some verbal prompts to be awoken during the exam. No abnormal movements. Cooperative with exam in no acute distress. Speech was mumbled with decreased rate and volume and lack of enunciation. Mood described as okay, affect is constricted in range. Thought process, linear, logical and fairly superficial. Thought content: patient denies any suicidal or homicidal ideation, reports knowing that police and others are following him, and endorses auditory hallucinations. Attention and concentration appeared limited and memory appeared somewhat reliable but none were formally tested. He was sometimes alert and oriented three times. Insight and judgment appear impaired. Impulse control is impaired.? Vitals/I&O/Wt Last Vital Signs Temp 97.8 F 10/31/21 20:43 Pulse 82 10/31/21 20:43 Resp 20 H 10/31/21 20:43 BP 127/80 10/31/21 20:43 Pulse Ox 94 10/31/21 20:43 Data NPU : 10/29/21 04:44 10/29/21 04:44 A&P Assessment and plan (1) Major depressive disorder, recurrent: Status: Acute (2) PTSD (post-traumatic stress disorder): Status: Acute (3) Methamphetamine use disorder, severe: Status: Acute (4) Catatonia: Status: Acute (5) Substance abuse: Status: Acute (6) Delirium: Status: Acute Plan This is a 60 year old white male with a history of methamphetamine use and opiate use who presents today with significant active psychosis endorsing he wants to return home to [place] but somewhat open to psychiatric treatment. 1.? Continue current medications 2.? Encourage individual, group and milieu therapy 3.? Continue q-15 minute check for safety 4.? Recommend sober living treatment at the highest level of care to which the patient is willing to commit. Involuntary Hold Information 96 Hour Hold: 96 Hour Involuntary Admission: No Attestations NPU Medical Necessity Statement*: Inpatient hospitalization is medically necessary and the clinically appropriate intervention at this time. We will monitor medications and make changes as indicated. Likely length of stay is 3-4 days. Coding Level of Care Code Acute Data Processing Operator for g Fwd Diagnoses Major depressive disorder, recurrent F33.9 PTSD (post-traumatic stress disorder) F43.10 Methamphetamine use disorder, severe F15.20 Catatonia F06.1 Substance abuse F19.10 Delirium R41.0
[2021-10-31 20:00] VITALS: PULSE 78; RESP 16; O2SAT 94
[2021-10-31 20:43] VITALS: BP 127/80; PULSE 82; RESP 20; TEMP 36.6; O2SAT 94
[2021-11-01 06:00] VITALS: BP 131/91; PULSE 85; RESP 20; TEMP 37.2; O2SAT 94
[2021-11-01] MEDS: multivitamin therapeutic Tablet 1 TAB PO (09:06)
[2021-11-01] MEDS: thiamine 100 mg Tablet PO (09:06)
[2021-11-01] MEDS: folic acid 1 mg Tablet PO (09:06)
[2021-11-01 14:00] VITALS: BP 102/77; PULSE 73; RESP 17; TEMP 36.4; O2SAT 94
[2021-11-01 17:03] VITALS: PULSE 75; RESP 16; O2SAT 92
--- NOTE | 2021-11-01 17:09 | W.PM.NPUPNS ---
Subjective NPU Subjective: Patient presents today being a bit more talkative but still with dysarthria and difficulty understanding. He was somewhat less isolative and out of his room. We discussed the risk benefits and alternatives of initiating Risperdal at bedtime and he understood and agreed to proceed as is documented in this note. We continue to discuss sobriety, his recovery and working with the social work team for a safe and sober discharge plan. Mental Status Exam MSE Comments: This is a well nourished, well developed white male looking older than his stated age in hospital scrubs with limited grooming and eye contact. Appeared less drowsy and did not require verbal prompts to be awoken during the exam today No abnormal movements. Cooperative with exam in no acute distress. Speech was mumbled with decreased rate and volume and lack of enunciation. Mood described as fine, affect is constricted in range. Thought process, linear, logical and fairly superficial. Thought content: patient denies any suicidal or homicidal ideation, reports knowing that police and others are following him, and endorses auditory hallucinations. Attention and concentration appeared limited and memory appeared somewhat reliable but none were formally tested. He was sometimes alert and oriented three times. Insight and judgment appear impaired. Impulse control is impaired.? Vitals/I&O/Wt Last Vital Signs Temp 97.5 F L 11/01/21 14:00 Pulse 75 11/01/21 17:03 Resp 16 11/01/21 17:03 BP 102/77 11/01/21 14:00 Pulse Ox 92 11/01/21 17:03 Data NPU : 10/29/21 04:44 10/29/21 04:44 A&P Assessment and plan (1) Major depressive disorder, recurrent: Status: Acute (2) PTSD (post-traumatic stress disorder): Status: Acute (3) Methamphetamine use disorder, severe: Status: Acute (4) Catatonia: Status: Acute (5) Substance abuse: Status: Acute (6) Delirium: Status: Acute Plan This is a 60 year old white male with a history of methamphetamine use and opiate use who presents today with significant active psychosis endorsing he wants to return home to [place] but somewhat open to psychiatric treatment. 1.? Continue current medications. Start Risperdal 0.5 mg p.o. nightly. 2.? Encourage individual, group and milieu therapy 3.? Continue q-15 minute check for safety 4.? Recommend sober living treatment at the highest level of care to which the patient is willing to commit. Involuntary Hold Information 96 Hour Hold: 96 Hour Involuntary Admission: No Attestations NPU Medical Necessity Statement*: Inpatient hospitalization is medically necessary and the clinically appropriate intervention at this time. We will monitor medications and make changes as indicated.? Likely length of stay is 2-3 days. 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
[2021-11-01 20:00] VITALS: PULSE 72; RESP 17; O2SAT 93
[2021-11-01 20:31] VITALS: BP 102/74; PULSE 82; RESP 20; TEMP 36.6; O2SAT 94
[2021-11-01] MEDS: risperiDONE 1 mg Tablet 0.5 MG PO (20:37)
[2021-11-01] MEDS: trazodone 50 mg Tablet PO (20:37)
--- NOTE | 2021-11-01 21:53 | PC.NURSE ---
PT REQUESTED SOMETHING TO HELP HIM SLEEP. TRAZADONE WAS GIVEN
[2021-11-02 06:00] VITALS: BP 119/80; PULSE 76; RESP 18; TEMP 36.4; O2SAT 93
[2021-11-02] MEDS: thiamine 100 mg Tablet PO (08:56)
[2021-11-02] MEDS: multivitamin therapeutic Tablet 1 TAB PO (08:56)
[2021-11-02] MEDS: acetaminophen 325 mg Tablet 650 MG PO (08:56)
[2021-11-02] MEDS: folic acid 1 mg Tablet PO (08:56)
[2021-11-02 14:00] VITALS: BP 109/70; PULSE 77; RESP 16; TEMP 36.5; O2SAT 93
--- NOTE | 2021-11-02 17:17 | P.NPUPN_ITS ---
Subjective NPU Subjective: Patient presents today without significant changes. He has being a little less isolative but still in his room a bit. He still seems to have confusion but was open to continue titration of the Risperdal. Mental Status Exam MSE Comments: This is a well nourished, well developed white male looking older than his stated age in hospital scrubs with limited grooming and eye contact. Appeared less drowsy. No abnormal movements except for mild psychomotor ideation. Cooperative with exam in no acute distress. Speech was mumbled with decreased rate and volume and lack of enunciation. Mood described as okay, affect is constricted in range. Thought process, linear, logical and fairly superficial. Thought content: patient denies any suicidal or homicidal ideation, reports knowing that police and others are following him, and endorses auditory hallucinations. Attention and concentration appeared limited and memory appeared somewhat reliable but none were formally tested. He was sometimes alert and oriented three times. Insight and judgment appear impaired. Impulse control is impaired.? Vitals/I&O/Wt Last Vital Signs Temp 97.9 F 11/02/21 20:49 Pulse 73 11/02/21 20:49 Resp 20 H 11/02/21 20:49 BP 127/82 11/02/21 20:49 Pulse Ox 95 11/02/21 20:49 Data NPU : 10/29/21 04:44 10/29/21 04:44 A&P Assessment and plan (1) Major depressive disorder, recurrent: Status: Acute (2) PTSD (post-traumatic stress disorder): Status: Acute (3) Methamphetamine use disorder, severe: Status: Acute (4) Catatonia: Status: Acute (5) Substance abuse: Status: Acute (6) Delirium: Status: Acute Plan This is a 60 year old white male with a history of methamphetamine use and opiate use who presents today with significant active psychosis endorsing he wants to return home to [place] but somewhat open to psychiatric treatment. 1.? Continue current medications.? Started Risperdal 0.5 mg p.o. nightly. We will increase to 1 mg p.o. nightly. 2.? Encourage individual, group and milieu therapy 3.? Continue q-15 minute check for safety 4.? Recommend sober living treatment at the highest level of care to which the patient is willing to commit. Involuntary Hold Information 96 Hour Hold: 96 Hour Involuntary Admission: No Attestations NPU Medical Necessity Statement*: Inpatient hospitalization is medically necessary and the clinically appropriate intervention at this time. We will monitor medications and make changes as indicated.? Likely length of stay is 2-4 days. Coding Level of Care Code Acute Credit Review Analyst for [facility] Fwd Diagnoses Major depressive disorder, recurrent F33.9 PTSD (post-traumatic stress disorder) F43.10 Methamphetamine use disorder, severe F15.20 Catatonia F06.1 Substance abuse F19.10 Delirium R41.0
[2021-11-02] MEDS: risperiDONE 1 mg Tablet 0.5 MG PO (20:34)
[2021-11-02] MEDS: trazodone 50 mg Tablet PO (20:34)
[2021-11-02 20:49] VITALS: BP 127/82; PULSE 73; RESP 20; TEMP 36.6; O2SAT 95
[2021-11-03 06:00] VITALS: BP 119/85; PULSE 85; RESP 18; TEMP 36.8; O2SAT 92
[2021-11-03] MEDS: folic acid 1 mg Tablet PO (08:40)
[2021-11-03] MEDS: thiamine 100 mg Tablet PO (08:40)
[2021-11-03] MEDS: multivitamin therapeutic Tablet 1 TAB PO (08:40)
[2021-11-03 10:40] VITALS: PULSE 73; RESP 18; O2SAT 94
[2021-11-03 13:30] VITALS: BP 102/70; PULSE 76; RESP 16; TEMP 36.5; O2SAT 93
--- NOTE | 2021-11-03 17:27 | W.PM.NPUPNS ---
Subjective NPU Subjective: Patient presents today reporting that he is still feeling sad. He reports that he is open to working with the treatment team on discharge planning. They are looking to find a stable place for him to be discharged. He continues to be somewhat isolative but some easier to understand. He denied any difficulties with tolerating the Risperdal. Mental Status Exam MSE Comments: This is a well nourished, well developed white male looking older than his stated age in hospital scrubs with limited grooming and eye contact. Appeared less drowsy. No abnormal movements except for mild psychomotor ideation.? Cooperative with exam in no acute distress. Speech continues to be mumbled with decreased rate and volume and lack of enunciation. Mood described as still sad, affect is constricted in range. Thought process, linear, logical and fairly superficial. Thought content: patient denies any suicidal or homicidal ideation, reports knowing that police and others are following him, and endorses auditory hallucinations. Attention and concentration appeared limited and memory appeared somewhat reliable but none were formally tested. He was sometimes alert and oriented three times. Insight and judgment appear impaired. Impulse control is impaired.? Vitals/I&O/Wt Last Vital Signs Temp 97.7 F 11/03/21 13:30 Pulse 72 11/03/21 20:00 Resp 18 11/03/21 20:00 BP 112/69 11/03/21 20:00 Pulse Ox 95 11/03/21 20:00 Data NPU : 10/29/21 04:44 10/29/21 04:44 A&P Assessment and plan (1) Major depressive disorder, recurrent: Status: Acute (2) PTSD (post-traumatic stress disorder): Status: Acute (3) Methamphetamine use disorder, severe: Status: Acute (4) Catatonia: Status: Acute (5) Substance abuse: Status: Acute (6) Delirium: Status: Acute Plan This is a 60 year old white male with a history of methamphetamine use and opiate use who presents today with significant active psychosis endorsing he wants to return home to [place] but somewhat open to psychiatric treatment. 1.? Continue current medications.? Started Risperdal 0.5 mg p.o. nightly.? Increased to 1 mg p.o. nightly. 2.? Encourage individual, group and milieu therapy 3.? Continue q-15 minute check for safety 4.? Recommend sober living treatment at the highest level of care to which the patient is willing to commit. Involuntary Hold Information 96 Hour Hold: 96 Hour Involuntary Admission: No Attestations NPU Medical Necessity Statement*: Inpatient hospitalization is medically necessary and the clinically appropriate intervention at this time. We will monitor medications and make changes as indicated.? Likely length of stay is 2-4 days. Coding Level of Care Code Acute Door Machine Operator for [facility] Fwd Diagnoses Major depressive disorder, recurrent F33.9 PTSD (post-traumatic stress disorder) F43.10 Methamphetamine use disorder, severe F15.20 Catatonia F06.1 Substance abuse F19.10 Delirium R41.0
[2021-11-03 20:00] VITALS: BP 112/69; PULSE 72; RESP 18; O2SAT 95
[2021-11-03] MEDS: trazodone 50 mg Tablet PO (20:44)
[2021-11-03] MEDS: risperiDONE 1 mg Tablet PO (20:44)
[2021-11-04 06:00] VITALS: BP 107/74; PULSE 65; RESP 18; O2SAT 95
[2021-11-04] MEDS: thiamine 100 mg Tablet PO (08:57)
[2021-11-04] MEDS: multivitamin therapeutic Tablet 1 TAB PO (08:57)
[2021-11-04] MEDS: folic acid 1 mg Tablet PO (08:57)
--- NOTE | 2021-11-04 11:44 | P.NPUPN_ITS ---
Subjective NPU Subjective: Patient presents today reporting that he remains sad, He reports that he is not feeling well and reports having voices. He continues to remain isolative on the unit staying in his bedroom. ? He reports that he in uncertain as to where he is going to go when he leaves here. He reports feeling sad about his decision making and reports no cravings for methamphetamine at this time. He reports that he is open to working with the treatment team on discharge planning.? They are looking to find a stable place for him to be discharged.He denied any difficulties with tolerating the Risperdal. Mental Status Exam MSE Comments: This is a poorly nourished, thin white male looking older than his stated age in hospital scrubs with limited grooming and eye contact. Appeared less drowsy. No abnormal movements except for mild psychomotor ideation.? Cooperative with exam in no acute distress. Speech continues to be mumbled with decreased rate and volume and lack of enunciation. Mood described as still sad, affect is flat Thought process is superficial. Thought content: patient denies any suicidal or homicidal ideation, reports continued nonspecific paranoia and endorses auditory hallucinations. Attention and concentration appeared limited and memory appeared somewhat reliable but none were formally tested. He was alert and oriented to person, place and time. Insight and judgment appear impaired. Impulse control is impaired.? Vitals/I&O/Wt Last Vital Signs Temp 98.1 F 11/04/21 20:29 Pulse 76 11/04/21 20:29 Resp 16 11/04/21 20:29 BP 121/81 11/04/21 20:29 Pulse Ox 98 11/04/21 20:29 Weight last 48 hrs Weight 66.905 kg Data NPU : 10/29/21 04:44 10/29/21 04:44 A&P Assessment and plan (1) Methamphetamine use disorder, severe: Status: Acute (2) Other stimulant abuse with stimulant-induced psychotic disorder, unspecified: Status: Acute (3) Stimulant-induced mood disorder with depressive symptoms: Status: Acute Plan Plan This is a 60 year old white male with a history of methamphetamine use and opiate use who presents today with significant active psychosis endorsing he w ants to return home to [place] but somewhat open to psychiatric treatment. 1.? Continue current medications.? Increase Risperidal to 1.5mg at night 2.? Encourage individual, group and milieu therapy 3.? Continue q-15 minute check for safety 4.? Recommend sober living treatment at the highest level of care to which the patient is willing to commit. Involuntary Hold Information 96 Hour Hold: 96 Hour Involuntary Admission: No Attestations NPU Medical Necessity Statement*: Inpatient hospitalization is medically necessary and the clinically appropriate intervention at this time. We will monitor medications and make changes as indicated.? Likely length of stay is 2-4 days. Coding Level of Care Code Acute Contract Driver for Arnal[facility] Fwaurea History Problem Focused Exam Problem Focused Medical Decision Making Straight Forward Diagnoses Methamphetamine use disorder, severe F15.20 Other stimulant abuse with stimulant-induced psychotic disorder, unspecified F15.159 Stimulant-induced mood disorder with depressive symptoms F15.94
[2021-11-04 14:00] VITALS: BP 106/73; PULSE 75; RESP 16; TEMP 36.6; O2SAT 95
[2021-11-04 16:00] VITALS: PULSE 75; RESP 16; O2SAT 95
[2021-11-04] MEDS: risperiDONE 1 mg Tablet 1.5 MG PO (20:18)
[2021-11-04] MEDS: trazodone 50 mg Tablet PO (20:19)
[2021-11-04 20:29] VITALS: BP 121/81; PULSE 76; RESP 16; TEMP 36.7; O2SAT 98
[2021-11-05 06:00] VITALS: BP 99/69; PULSE 74; RESP 18; TEMP 36.6; O2SAT 91; BMI 23.8
[2021-11-05] MEDS: folic acid 1 mg Tablet PO (07:45)
[2021-11-05] MEDS: multivitamin therapeutic Tablet 1 TAB PO (07:45)
[2021-11-05] MEDS: thiamine 100 mg Tablet PO (07:45)
[2021-11-05 09:18] VITALS: PULSE 83; RESP 16; O2SAT 91
--- NOTE | 2021-11-05 11:25 | P.NPUPN_ITS ---
Subjective NPU Subjective: Patient presents today reporting that he remains out of sorts. , He reports that he has hallucinations still. He minimized the possibility that methampetamine may have contributed to his problem. ? He reports still being homeless. . He reports feeling sad about his decision making and reports no cravings for methamphetamine at this time.? He continues to remain open to working with the treatment team on discharge planning.? They are looking to find a stable place for him to be discharged. He endorsed depressed mood at this time with anhedonia. He continues to remain isolative on the unit Mental Status Exam MSE Comments: This is a poorly nourished, thin? white male looking older than his stated age in hospital scrubs with limited grooming and eye contact. Appeared less drowsy. No abnormal movements except for mild psychomotor ideation.?He remained anergic, and abulic. Cooperative with exam in no acute distress. Speech continues to be difficult to understand with decreased rate and volume and lack of enunciation. Mood described as still sad, affect is flat Thought process is? superficial. Thought content: patient denies any suicidal or homicidal ideation, reports continued nonspecific paranoia? and endorses auditory hallucinations. Attention and concentration appeared limited and memory appeared somewhat reliable but none were formally tested. He was alert and oriented to person, place and time. ? Insight and judgment appear impaired. Impulse control is impaired.? Vitals/I&O/Wt Last Vital Signs Temp 97.7 F 11/06/21 06:00 Pulse 73 11/06/21 06:00 Resp 17 11/06/21 06:00 BP 118/82 11/06/21 06:00 Pulse Ox 96 11/06/21 06:00 Weight last 48 hrs Weight 66.905 kg Weight 66.905 kg Data NPU : 10/29/21 04:44 10/29/21 04:44 A&P Assessment and plan (1) Stimulant-induced mood disorder with depressive symptoms: Status: Acute (2) Other stimulant abuse with stimulant-induced psychotic disorder, unspeci fied: Status: Acute (3) Methamphetamine use disorder, severe: Status: Acute (4) Stimulant-induced psychotic disorder: Status: Acute Plan This is a 60 year old white male with a history of methamphetamine use and opiate use who presents today with significant active psychosis endorsing he wants to return home to [place] but somewhat open to psychiatric treatment. 1.? Continue current medications.? Continue risperidal 1.5mg at night with likely increase tommorow. 2.? Encourage individual, group and milieu therapy 3.? Continue q-15 minute check for safety 4.? Recommend sober living treatment at the highest level of care to which the patient is willing to commit. Involuntary Hold Information 96 Hour Hold: 96 Hour Involuntary Admission: No Attestations NPU Medical Necessity Statement*: npatient hospitalization is medically necessary and the clinically appropriate intervention at this time. We will monitor medications and make changes as indicated.? Likely length of stay is 2-4 days. 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
[2021-11-05 14:00] VITALS: BP 118/78; PULSE 81; RESP 16; TEMP 36.4; O2SAT 94
[2021-11-05 20:06] VITALS: BP 126/85; PULSE 77; RESP 16; TEMP 36.7; O2SAT 95
[2021-11-05 21:40] VITALS: PULSE 76; RESP 16; O2SAT 94
[2021-11-06 06:00] VITALS: BP 118/82; PULSE 73; RESP 17; TEMP 36.5; O2SAT 96
[2021-11-06] MEDS: multivitamin therapeutic Tablet 1 TAB PO (09:29)
[2021-11-06] MEDS: folic acid 1 mg Tablet PO (09:29)
[2021-11-06] MEDS: thiamine 100 mg Tablet PO (09:29)
[2021-11-06 09:49] VITALS: PULSE 73; RESP 14; O2SAT 95
--- NOTE | 2021-11-06 10:12 | P.NPUPN_ITS ---
Subjective NPU Subjective: Patient presents today reporting that he remains feeling sad. , He reports that he continues to hear voices. ? He minimized the use of methamphetamine today ? He reports still being homeless.? He remained isolative on the unit. Appears to be poor at caring for self with poor activities of daily living. He reports the voices tell him that he is no good. Mental Status Exam MSE Comments: This is a poorly nourished, thin? white male looking older than his stated age in hospital scrubs with limited grooming and eye contact. Appeared drowsy lying in bed. No abnormal movements except for mild psychomotor ideation.?He remained anergic, and abulic. ? Cooperative with exam in no acute distress. Speech continues to be difficult to understand with decreased rate and volume and lack of enunciation. Mood described as still sad, affect is flat Thought process is? superficial. Thought content: patient denies any suicidal or homicidal ideation, reports continued nonspecific paranoia? and endorses auditory hallucinations. Attention and concentration appeared limited and memory appeared somewhat reliable but none were formally tested. He was alert and oriented to person, place and time. ? Insight and judgment appear impaired. Impulse control is impaired.? Vitals/I&O/Wt Last Vital Signs Temp 97.6 F 11/06/21 14:00 Pulse 80 11/06/21 14:00 Resp 16 11/06/21 14:00 BP 99/71 11/06/21 14:00 Pulse Ox 95 11/06/21 14:00 Weight last 48 hrs Weight 66.905 kg Weight 66.905 kg Data NPU : 10/29/21 04:44 10/29/21 04:44 A&P Assessment and plan (1) Stimulant-induced psychotic disorder: Status: Acute (2) Methamphetamine use disorder, severe: Status: Acute (3) Stimulant-induced mood disorder with depressive symptoms: Status: Acute Plan This is a 60 year old white male with a history of methamphetamine use and opiate use who presents today with significant active psychosis endorsing he wants to return home to [place] but somewhat open to psychiatric treatment. 1.? Continue current medications.? Increase risperidone to 2mg at night 2.? Encourage individual, group and milieu therapy 3.? Continue q-15 minute check for safety 4.? Recommend sober living treatment at the highest level of care to which the patient is willing to commit. Involuntary Hold Information 96 Hour Hold: 96 Hour Involuntary Admission: No Attestations NPU Medical Necessity Statement*: Inpatient hospitalization is medically necessary and the clinically appropriate intervention at this time. We will monitor medications and make changes as indicated.? Likely length of stay is 2-4 days. Coding Level of Care Code Established Pt Acute Ela Teacher for Francog Fwd Patient Type Established History Problem Focused Exam Problem Focused Medical Decision Making Straight Forward Diagnoses Stimulant-induced psychotic disorder F15.959 Methamphetamine use disorder, severe F15.20 Stimulant-induced mood disorder with depressive symptoms F15.94
[2021-11-06 14:00] VITALS: BP 99/71; PULSE 80; RESP 16; TEMP 36.4; O2SAT 95
[2021-11-06 22:00] VITALS: BP 111/69; PULSE 96; RESP 17; TEMP 36.7; O2SAT 98
[2021-11-07] MEDS: risperiDONE 1 mg Tablet 2 MG PO ×2 (01:09→20:37)
[2021-11-07 06:00] VITALS: BP 104/67; PULSE 76; RESP 19; TEMP 36.8; O2SAT 94
[2021-11-07] MEDS: thiamine 100 mg Tablet PO (08:24)
[2021-11-07] MEDS: multivitamin therapeutic Tablet 1 TAB PO (08:24)
[2021-11-07] MEDS: folic acid 1 mg Tablet PO (08:24)
--- NOTE | 2021-11-07 11:14 | PC.NURSE ---
IN ROOM RESTING. REMAINS ISLOTIVE AND WITHDRAWN TO ROOM. DENIES PAIN. DENIES SI/HI AND AVH AT THIS TIME. SUPPORT VOICED.
[2021-11-07 14:00] VITALS: BP 136/81; PULSE 77; RESP 16; TEMP 36.6; O2SAT 96
[2021-11-07 18:15] VITALS: PULSE 81; RESP 18; O2SAT 92
--- NOTE | 2021-11-07 18:36 | W.PM.NPUPNS ---
Subjective NPU Subjective: Patient presents today reporting that he remains feeling down. He continues to remain isolative on the unit. Continues to struggle with completion of activities of daily living. He required significant prompting to eat. He continues to remain somewhat difficult to understand. He reports tolerating his medications without any side effects. Mental Status Exam MSE Comments: He is a thin white male with poor hygiene who appeared older than his stated age. There was no evidence of any abnormal involuntary motor movements tics or tremors appreciated. He did not appear to be responding to internal stimuli. He did show some evidence of thought blocking. His attention appeared variable his mood was described as okay his affect appeared mood incongruent and blunted. He did endorse auditory hallucinations but was unable to describe what he was saying to him. Any of his insight remains poor his judgment remain poor. Vitals/I&O/Wt Last Vital Signs Temp 97.9 F 11/07/21 14:00 Pulse 81 11/07/21 18:15 Resp 18 11/07/21 18:15 BP 136/81 11/07/21 14:00 Pulse Ox 92 11/07/21 18:15 Data NPU : 10/29/21 04:44 10/29/21 04:44 A&P Assessment and plan (1) Stimulant-induced psychotic disorder: Status: Acute (2) Methamphetamine use disorder, severe: Status: Acute (3) Other stimulant abuse with stimulant-induced psychotic disorder, unspecified: Status: Acute Plan Plan This is a 60 year old white male with a history of methamphetamine use and opiate use who presents today with significant active psychosis endorsing he wants to return home to [place] but somewhat open to psychiatric treatment. 1.? Continue current medications. Continue risperidone to 2mg at night 2.? Encourage individual, group and milieu therapy 3.? Continue q-15 minute check for safety 4.? Recommend sober living treatment at the highest level of care to which the patient is willing to commit. Involuntary Hold Information 96 Hour Hold: 96 Hour Involuntary Admission: No Attestations NPU Medical Necessity Statement*: Inpatient hospitalization is medically necessary and the clinically appropriate intervention at this time. We will monitor medications and make changes as indicated.? Likely length of stay is 3-5 days. Coding Level of Care Code Established Pt Acute Commissioning Specialist for Arnaldo Antoine Patient Type Established History Problem Focused Exam Problem Focused Medical Decision Making Straight Forward Diagnoses Methamphetamine use disorder, severe F15.20 Stimulant-induced psychotic disorder F15.959 Other stimulant abuse with stimulant-induced psychotic disorder, unspecified F15.159
[2021-11-07 19:45] VITALS: BP 97/67; PULSE 76; RESP 18; TEMP 36.6; O2SAT 95
[2021-11-08 06:00] VITALS: BP 111/75; PULSE 70; RESP 20; TEMP 36.8; O2SAT 95
[2021-11-08] MEDS: folic acid 1 mg Tablet PO (08:48)
[2021-11-08] MEDS: multivitamin therapeutic Tablet 1 TAB PO (08:48)
[2021-11-08] MEDS: thiamine 100 mg Tablet PO (08:48)
[2021-11-08 13:52] VITALS: BP 111/75; PULSE 70; RESP 20; TEMP 36.8
[2021-11-08 14:20] VITALS: BP 92/52; PULSE 75; RESP 16; TEMP 36.4; O2SAT 93
--- NOTE | 2021-11-08 15:12 | PC.NURSE ---
Patient in hallway.Request for water.
--- NOTE | 2021-11-08 19:42 | W.PM.NPUPNS ---
Subjective NPU Subjective: The patient reported feeling better today. He still remains uncertain as to where he wants to go when he leaves here. He still reports that he has voices but reports that they are less distracting to him. He has been less isolative on the unit. He has been sleeping better with risperidone and appeared to be eating better on the unit. Mental Status Exam MSE Comments: He is a thin white male with poor hygiene who appeared older than his stated age.? There was no evidence of any abnormal involuntary motor movements tics or tremors appreciated.? He did not appear to be responding to internal stimuli.? He did show some continued evidence of thought blocking.? His attention appeared variable. His mood was described as better . His affect appeared brighter but still flat. He did endorse auditory hallucinations but was unable to describe what he was saying to him.? Any of his insight remains poor his judgment remain poor. Vitals/I&O/Wt Last Vital Signs Temp 97.6 F 11/08/21 14:20 Pulse 75 11/08/21 14:20 Resp 16 11/08/21 14:20 BP 92/52 11/08/21 14:20 Pulse Ox 93 11/08/21 14:20 Data NPU : 10/29/21 04:44 10/29/21 04:44 A&P Assessment and plan (1) PTSD (post-traumatic stress disorder): Status: Acute (2) Major depressive disorder, recurrent: Status: Acute (3) Other stimulant abuse with stimulant-induced psychotic disorder, unspecified: Status: Acute (4) Stimulant-induced mood disorder with depressive symptoms: Status: Acute Plan This is a 60 year old white male with a history of methamphetamine use and opiate use who presents today with significant active psychosis endorsing he wants to return home to [place] but somewhat open to psychiatric treatment. 1.? Continue current medications. Continue risperidone to 2mg at night 2.? Encourage individual, group and milieu therapy 3.? Continue q-15 minute check for safety 4.? Recommend sober living treatment at the highest level of care to which the patient is willing to commit. Involuntary Hold Information 96 Hour Hold: 96 Hour Involuntary Admission: No Attestations NPU Medical Necessity Statement*: Inpatient hospitalization is medically necessary and the clinically appropriate intervention at this time. We will monitor medications and make changes as indicated.? Likely length of stay is 3-5 days. 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
[2021-11-08 19:53] VITALS: BP 108/76; PULSE 89; RESP 16; TEMP 36.6; O2SAT 95
[2021-11-08] MEDS: hyDROXYzine 25 mg Capsule 50 MG PO (20:37)
[2021-11-08] MEDS: trazodone 50 mg Tablet PO (20:37)
[2021-11-08] MEDS: risperiDONE 1 mg Tablet 2 MG PO (20:38)
--- NOTE | 2021-11-08 23:45 | PC.NURSE ---
PRN PT WAS ANXIOUS REQUESTED MEDICATION. VISTERIL WAS GIVEN ALONG WITH TRAZADONE TO HELP PT SLEEP
[2021-11-09 06:00] VITALS: BP 99/64; PULSE 74; RESP 15; TEMP 36.8; O2SAT 91
[2021-11-09] MEDS: thiamine 100 mg Tablet PO (07:57)
[2021-11-09] MEDS: multivitamin therapeutic Tablet 1 TAB PO (07:57)
[2021-11-09] MEDS: folic acid 1 mg Tablet PO (07:57)
[2021-11-09] MEDS: acetaminophen 325 mg Tablet 650 MG PO ×2 (12:02→20:10)
[2021-11-09] MEDS: hyDROXYzine 25 mg Capsule 50 MG PO ×2 (12:02→20:10)
--- NOTE | 2021-11-09 12:03 | PC.NURSE ---
PRN VISTARIL 50 MG GIVEN PO PER PT C/O STATED ANXIETY
[2021-11-09 14:00] VITALS: BP 117/71; PULSE 86; RESP 18; TEMP 36.7; O2SAT 95
--- NOTE | 2021-11-09 17:05 | W.PM.NPUPNS ---
Subjective NPU Subjective: Agusto was seen on rounds this morning. He had reported that he did not know where he wanted to go live. He reported wanting to live where the whites all lived. He had reported that he feels that they are at the [facility] and that he would follow them wherever they go. He was more talkative and communicative with other patients and staff members today. He reported no pain and reported that his mood was improving. He denied any thoughts of hurting himself and reported that the voices had quieted down. Mental Status Exam MSE Comments: He is a thin white male with poor hygiene who appeared older than his stated age.? There was no evidence of any abnormal involuntary motor movements tics or tremors appreciated.? He did not appear to be responding to internal stimuli.? There was less thought blocking but his thought process appeared more disorganized with more evidence of overvalued ideas and strange beliefs. ? His attention appeared variable. ? His mood was described as better .? His affect appeared brighter overall He did endorse auditory hallucinations but was unable to describe what he was saying to him.? Any of his insight remains poor his judgment remain poor. Vitals/I&O/Wt Last Vital Signs Temp 98.1 F 11/09/21 14:00 Pulse 86 11/09/21 14:00 Resp 18 11/09/21 14:00 BP 117/71 11/09/21 14:00 Pulse Ox 95 11/09/21 14:00 Data NPU : 10/29/21 04:44 10/29/21 04:44 A&P Assessment and plan (1) Stimulant-induced psychotic disorder: Status: Acute (2) Stimulant-induced mood disorder with depressive symptoms: Status: Acute (3) Other stimulant abuse with stimulant-induced psychotic disorder, unspecified: Status: Acute (4) Major depressive disorder, recurrent: Status: Acute (5) PTSD (post-traumatic stress disorder): Status: Acute (6) Methamphetamine use disorder, severe: Status: Acute (7) Catatonia: Status: Acute (8) Substance abuse: Status: Acute Plan This is a 60 year old white male with a history of methamphetamine use and opiate use who presents today with significant active psychosis endorsing he wants to return home to [place] but somewhat open to psychiatric treatment. 1.? Continue current medications. Continue risperidone to 2.5mg at night as patient continues to have evidence of bizarre delusions. 2.? Encourage individual, group and milieu therapy 3.? Continue q-15 minute check for safety 4.? Recommend sober living treatment at the highest level of care to which the patient is willing to commit. Involuntary Hold Information 96 Hour Hold: 96 Hour Involuntary Admission: No Attestations NPU Medical Necessity Statement*: Inpatient hospitalization is medically necessary and the clinically appropriate intervention at this time. We will monitor medications and make changes as indicated.? Likely length of stay is 3-5 days. Coding Level of Care Code Established Pt Acute [place] Operator for Chg Fwd Patient Type Established History Problem Focused Exam Problem Focused Medical Decision Making Straight Forward Diagnoses Stimulant-induced psychotic disorder F15.959 Stimulant-induced mood disorder with depressive symptoms F15.94 Other stimulant abuse with stimulant-induced psychotic disorder, unspecified F15.159 Major depressive disorder, recurrent F33.9 PTSD (post-traumatic stress disorder) F43.10 Methamphetamine use disorder, severe F15.20 Catatonia F06.1 Substance abuse F19.10
[2021-11-09] MEDS: risperiDONE 1 mg Tablet 2 MG PO (20:09)
[2021-11-09] MEDS: trazodone 50 mg Tablet PO (20:10)
[2021-11-09 20:29] VITALS: BP 106/70; PULSE 73; RESP 18; TEMP 36.7; O2SAT 94
[2021-11-09 21:38] VITALS: BP 106/70; PULSE 73; RESP 18; TEMP 36.7; O2SAT 94
[2021-11-10] MEDS: OLANZapine 5 mg ODT PO (00:01)
--- NOTE | 2021-11-10 00:58 | PC.NURSE ---
PRN PT REQUESTED SOMETHING FOR SLEEP AND ANXIETY. PT WAS GIVEN TRAZADONE AND VISTERIL AT 2009. AT 2009 PT RETURNED TO [facility] REQUESTING MEDICATION TO HIM HIM SLEEP, PT WAS GIVEN OLANZAPINE.
[2021-11-10 03:34] VITALS: PULSE 74; RESP 18; O2SAT 93
[2021-11-10 06:00] VITALS: BP 115/73; PULSE 62; RESP 17; TEMP 36.8; O2SAT 95
[2021-11-10] MEDS: thiamine 100 mg Tablet PO (09:45)
[2021-11-10] MEDS: multivitamin therapeutic Tablet 1 TAB PO (09:45)
[2021-11-10] MEDS: folic acid 1 mg Tablet PO (09:45)
--- NOTE | 2021-11-10 12:27 | W.PM.NPUPNS ---
Subjective NPU Subjective: Agusto was seen on rounds this morning.? Dominick appeared more interactive with his peers and staff. He continued to report that he wished to leave but did not know where. He also appeared fairly confused and discussed the fact that he wanted to follow his Gonzalez's to what ever place that they took him to. He had reported that these people were special and had been in [place] with special abilities and he wished to stay with them because they were a success. Mental Status Exam MSE Comments: His hygiene appeared poor. He was alert and oriented to person the year date and month but not day of the week. He described his mood as all right. His affect appeared somewhat blunted with limited facial expressions noticed his thought process was loose at times difficult to follow with clear evidence of some bizarre thoughts and and bizarre delusional thinking his he did not appear to have as much thought blocking as previous there was no active homicidal or suicidal ideation. He did not appear to be actively responding to internal stimuli today. His insight and judgment remains limited. Vitals/I&O/Wt Last Vital Signs Temp 98.2 F 11/10/21 13:23 Pulse 81 11/10/21 13:23 Resp 20 H 11/10/21 13:23 BP 109/72 11/10/21 13:23 Pulse Ox 92 11/10/21 13:23 Data NPU : 10/29/21 04:44 10/29/21 04:44 A&P Assessment and plan (1) Stimulant-induced psychotic disorder: Status: Acute (2) Stimulant-induced mood disorder with depressive symptoms: Status: Acute (3) Other stimulant abuse with stimulant-induced psychotic disorder, unspecified: Status: Acute (4) Major depressive disorder, recurrent: Status: Acute (5) PTSD (post-traumatic stress disorder): Status: Acute (6) Methamphetamine use disorder, severe: Status: Acute Plan Plan This is a 60 year old white male with a history of methamphetamine use and opiate use who presents today with significant active psychosis endorsing he wants to return home to [place] but somewhat open to psychiatric treatment. 1.? Continue current medications. Increase risperidone to 2.5mg at night as patient continues to have evidence of bizarre delusions. 2.? Encourage individual, group and milieu therapy 3.? Continue q-15 minute check for safety 4.? Recommend sober living treatment at the highest level of care to which the patient is willing to commit. Involuntary Hold Information 96 Hour Hold: 96 Hour Involuntary Admission: No Attestations NPU Medical Necessity Statement*: Inpatient hospitalization is medically necessary and the clinically appropriate intervention at this time. We will monitor medications and make changes as indicated.? Likely length of stay is 3-5 days. Coding Level of Care Code Established Pt Acute County Agricultural Agent for Arnaldo Fwd Patient Type Established History Problem Focused Exam Problem Focused Medical Decision Making Straight Forward Diagnoses Stimulant-induced psychotic disorder F15.959 Stimulant-induced mood disorder with depressive symptoms F15.94 Other stimulant abuse with stimulant-induced psychotic disorder, unspecified F15.159 Major depressive disorder, recurrent F33.9 PTSD (post-traumatic stress disorder) F43.10 Methamphetamine use disorder, severe F15.20
[2021-11-10 13:23] VITALS: BP 109/72; PULSE 81; RESP 20; TEMP 36.8; O2SAT 92
[2021-11-10 19:48] VITALS: BP 107/70; PULSE 76; RESP 18; O2SAT 96
[2021-11-10] MEDS: trazodone 50 mg Tablet PO (20:16)
[2021-11-10] MEDS: risperiDONE 1 mg Tablet 2.5 MG PO (20:16)
[2021-11-10] MEDS: hyDROXYzine 25 mg Capsule 50 MG PO (20:16)
[2021-11-11 06:00] VITALS: BP 121/82; PULSE 77; RESP 16; TEMP 36.6; O2SAT 95
[2021-11-11] MEDS: folic acid 1 mg Tablet PO (08:51)
[2021-11-11] MEDS: multivitamin therapeutic Tablet 1 TAB PO (08:51)
[2021-11-11] MEDS: thiamine 100 mg Tablet PO (08:51)
[2021-11-11 09:41] VITALS: PULSE 90; RESP 16; O2SAT 94
[2021-11-11 13:10] VITALS: BP 97/60; PULSE 79; RESP 16; TEMP 36.6; O2SAT 94
--- NOTE | 2021-11-11 17:11 | W.PM.NPUPNS ---
Subjective NPU Subjective: Agusto was seen on rounds this morning.? He reports that he still hears voices and he continued to endorse desire to go where the rest of the nash people went. Reports hurting himself or others. Continues to isolate himself but has been a bit more social on the unit. Mental Status Exam MSE Comments: His hygiene appeared poor.? He was alert and oriented to person, place year and month but not day of week.? He described his mood as okay.? His affect remained blunted with limited facial expressions noticed. his thought process was loose at time and difficult to follow with clear evidence of ideas of reference. He did not appear to have as much thought blocking. There was no active homicidal or suicidal ideation.? He did not appear to be actively responding to internal stimuli today.? His insight and judgment remains limited. Vitals/I&O/Wt Last Vital Signs Temp 98 F 11/11/21 13:10 Pulse 79 11/11/21 13:10 Resp 16 11/11/21 13:10 BP 97/60 11/11/21 13:10 Pulse Ox 94 11/11/21 13:10 Data NPU : 10/29/21 04:44 10/29/21 04:44 A&P Assessment and plan (1) Stimulant-induced psychotic disorder: Status: Acute (2) Stimulant-induced mood disorder with depressive symptoms: Status: Acute (3) Psychotic disorder: Status: Acute Plan This is a 60 year old white male with a history of methamphetamine use and opiate use who presents today with significant active psychotic symptoms that appears to be improving. 1.? Risperidone 2.5mg at night as patient continues to have evidence of bizarre delusions. 2.? Encourage individual, group and milieu therapy 3.? Continue q-15 minute check for safety 4.? Recommend sober living treatment at the highest level of care to which the patient is willing to commit. Involuntary Hold Information 96 Hour Hold: 96 Hour Involuntary Admission: No Attestations NPU Medical Necessity Statement*: Inpatient hospitalization is medically necessary and the clinically appropriate intervention at this time. We will monitor medications and make changes as indicated.? Likely length of stay is another 3-5 days. Coding Level of Care Code Established Pt Acute Blacking Wheel Tender for Arnaldo Fwaurea Patient Type Established History Problem Focused Exam Problem Focused Medical Decision Making Straight Forward Diagnoses Stimulant-induced psychotic disorder F15.959 Stimulant-induced mood disorder with depressive symptoms F15.94 Psychotic disorder F29
[2021-11-11 19:28] VITALS: BP 115/74; PULSE 66; RESP 16; TEMP 36.9; O2SAT 94
[2021-11-11] MEDS: risperiDONE 1 mg Tablet 2.5 MG PO (20:56)
[2021-11-11] MEDS: hyDROXYzine 25 mg Capsule 50 MG PO (20:59)
[2021-11-11] MEDS: acetaminophen 325 mg Tablet 650 MG PO (20:59)
[2021-11-11] MEDS: trazodone 50 mg Tablet PO (21:01)
--- NOTE | 2021-11-11 22:00 | PC.NURSE ---
Trazodone 50 mg PO and Vistaril 50 mg PO given for sleep and anxiety with adequate results.
[2021-11-12 06:00] VITALS: BP 116/81; PULSE 80; RESP 17; TEMP 36.6; O2SAT 95; BMI 23.8
[2021-11-12] MEDS: acetaminophen 325 mg Tablet 650 MG PO (06:44)
[2021-11-12] MEDS: hyDROXYzine 25 mg Capsule 50 MG PO (06:44)
[2021-11-12] MEDS: thiamine 100 mg Tablet PO (09:04)
[2021-11-12] MEDS: folic acid 1 mg Tablet PO (09:04)
[2021-11-12] MEDS: multivitamin therapeutic Tablet 1 TAB PO (09:04)
[2021-11-12 09:56] VITALS: PULSE 77; RESP 16; O2SAT 94
--- NOTE | 2021-11-12 12:31 | W.PM.NPUPNS ---
Subjective NPU Subjective: Agusto was seen on rounds this morning.?He reports symptoms in his medications. He reports that his voices have been less distracting. He still reports homelessness but reports that he would continue his medications and may want to stay in [place]. He reports no cravings for methamphetamines. He reports no previous triggers for methampetamine use at this time. Mental Status Exam MSE Comments: His hygiene appeared poor.? He was alert and oriented to person, place year and month but not day of week.? He described his mood as okay.? His affect remained? blunted with limited facial expressions noticed. His thought process was loose at time and? difficult to follow with clear evidence of? ideas of reference.? He did not appear to have as much thought blocking.? There was no active homicidal or suicidal ideation.? He did not appear to be actively responding to internal stimuli today.? His insight and judgment remains limited. Vitals/I&O/Wt Last Vital Signs Temp 98.0 F 11/12/21 14:00 Pulse 81 11/12/21 14:00 Resp 16 11/12/21 14:00 BP 105/70 11/12/21 14:00 Pulse Ox 94 11/12/21 14:00 Weight last 48 hrs Weight 66.905 kg Data NPU : 10/29/21 04:44 10/29/21 04:44 A&P Assessment and plan (1) Psychotic disorder: Status: Acute (2) Major depressive disorder, recurrent: Status: Acute (3) Methamphetamine use disorder, severe: Status: Acute (4) Stimulant-induced mood disorder with depressive symptoms: Status: Acute (5) Other stimulant abuse with stimulant-induced psychotic disorder, unspecified: Status: Acute (6) Stimulant-induced psychotic disorder: Status: Acute Plan Plan This is a 60 year old white male with a history of methamphetamine use and opiate use who presents today with significant active psychotic symptoms that appears to be improving.? 1.? Increase Risperidone 3mg at night as patient continues to have evidence of delusional thinking. 2.? Encourage individual, group and milieu therapy 3.? Continue q-15 minute check for safety 4.? Recommend sober living treatment at the highest level of care to which the patient is willing to commit. Involuntary Hold Information 96 Hour Hold: 96 Hour Involuntary Admission: No Attestations NPU Medical Necessity Statement*: Inpatient hospitalization is medically necessary and the clinically appropriate intervention at this time. We will monitor medications and make changes as indicated.? Likely length of stay is another 2-4 days. 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
[2021-11-12 14:00] VITALS: BP 105/70; PULSE 81; RESP 16; TEMP 36.7; O2SAT 94
[2021-11-12] MEDS: risperiDONE 1 mg Tablet 3 MG PO (20:28)
[2021-11-12 20:55] VITALS: PULSE 84; RESP 15; O2SAT 93
[2021-11-12 21:03] VITALS: BP 104/69; PULSE 86; RESP 16; TEMP 36.5; O2SAT 93
[2021-11-13 06:00] VITALS: BP 108/70; PULSE 88; RESP 16; TEMP 36.6; O2SAT 94
[2021-11-13] MEDS: thiamine 100 mg Tablet PO (08:09)
[2021-11-13] MEDS: multivitamin therapeutic Tablet 1 TAB PO (08:09)
[2021-11-13] MEDS: folic acid 1 mg Tablet PO (08:09)
[2021-11-13 09:42] VITALS: PULSE 85; RESP 14; O2SAT 92
--- NOTE | 2021-11-13 12:30 | P.NPUPN_ITS ---
Subjective NPU Subjective: Agusto was seen on rounds this morning, no side effects from medications. He rep orts no feelings of hopelessness. He still remains uncertain as to where he wants to live and continues to report desire to join the [employer] and build the [employer]. ? He reports that his voices continue to remain present and at times distracting.? He continues to report no side effects from medication. He continues to struggle completing activities of daily living on the unit. Mental Status Exam MSE Comments: His hygiene appeared poor.? He was alert and oriented to person, place and year only. He described his mood as allright.? His affect remained? blunted. His thought process was loose at time and? difficult to follow with clear evidence of? ideas of reference and content revealed active delusional thinking. He did not appear to have as much thought blocking.? There was no active homicidal or suicidal ideation.? He did not appear to be actively responding to internal stimuli today.? His insight and judgment remains limited. Vitals/I&O/Wt Last Vital Signs Temp 98.1 F 11/13/21 14:00 Pulse 75 11/13/21 14:00 Resp 16 11/13/21 14:00 BP 111/74 11/13/21 14:00 Pulse Ox 95 11/13/21 14:00 Weight last 48 hrs Weight 66.905 kg Data NPU : 10/29/21 04:44 10/29/21 04:44 A&P Assessment and plan (1) Psychotic disorder: Status: Acute (2) Stimulant-induced psychotic disorder: Status: Acute (3) Stimulant-induced mood disorder with depressive symptoms: Status: Acute (4) Other stimulant abuse with stimulant-induced psychotic disorder, unspe cified: Status: Acute (5) Major depressive disorder, recurrent: Status: Acute (6) PTSD (post-traumatic stress disorder): Status: Acute (7) Methamphetamine use disorder, severe: Status: Acute Plan This is a 60 year old white male with a history of methamphetamine use and opiate use who presents today with significant active psychotic symptoms that appears to be improving.? 1.? Continue Risperidone 3mg at night as patient continues to have evidence of psychosis. 2.? Encourage individual, group and milieu therapy 3.? Continue q-15 minute check for safety 4.? Recommend sober living treatment at the highest level of care to which the patient is willing to commit. Involuntary Hold Information 96 Hour Hold: 96 Hour Involuntary Admission: No Attestations NPU Medical Necessity Statement*: Inpatient hospitalization is medically necessary and the clinically appropriate intervention at this time. We will monitor medications and make changes as indicated.? Likely length of stay is another 2-4 days. 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
[2021-11-13 14:00] VITALS: BP 111/74; PULSE 75; RESP 16; TEMP 36.7; O2SAT 95
[2021-11-13 20:16] VITALS: BP 111/74; PULSE 74; RESP 15; O2SAT 94
[2021-11-13] MEDS: risperiDONE 1 mg Tablet 3 MG PO (20:47)
[2021-11-14 06:00] VITALS: BP 106/75; PULSE 84; RESP 17; TEMP 36.6; O2SAT 96
[2021-11-14] MEDS: multivitamin therapeutic Tablet 1 TAB PO (09:22)
[2021-11-14] MEDS: thiamine 100 mg Tablet PO (09:22)
[2021-11-14] MEDS: folic acid 1 mg Tablet PO (09:22)
[2021-11-14 11:10] VITALS: PULSE 83; RESP 16; O2SAT 93
--- NOTE | 2021-11-14 13:20 | P.NPUPN_ITS ---
Subjective NPU Subjective: Agusto was seen on rounds this morning, no side effects from medications. He re ports that he may be ready to go soon. He had appeared less distracted and more engaging on the milieu today. He reports improved sleep. He reports that he could continue to take his medications upon discharge. Mental Status Exam MSE Comments: His hygiene appeared to be better today? He was alert and oriented to person and place. ? He described his mood as good.? His affect appeared blunted still. ? His thought process appeared to show less derailment.? No overt delusions appreciated ? He did not appear to have as much thought blocking.? There was no active homicidal or suicidal ideation.? He did not appear to be actively responding to internal stimuli today.? His insight and judgment remains guarded Vitals/I&O/Wt Last Vital Signs Temp 98.7 F 11/14/21 14:00 Pulse 90 11/14/21 14:00 Resp 18 11/14/21 14:00 BP 113/65 11/14/21 14:00 Pulse Ox 92 11/14/21 14:00 Data NPU : 10/29/21 04:44 10/29/21 04:44 A&P Assessment and plan (1) Psychotic disorder: Status: Acute (2) Methamphetamine use disorder, severe: Status: Acute (3) PTSD (post-traumatic stress disorder): Status: Acute (4) Stimulant-induced mood disorder with depressive symptoms: Status: Acute (5) Stimulant-induced psychotic disorder: Status: Acute Plan This is a 60 year old white male with a history of methamphetamine use and opiate use who presents today with significant active psychotic symptoms that appears to be improving.? 1.? Continue? Risperidone 3mg at night as patient continues to have evidence of psychosis.? 2.? Encourage individual, group and milieu therapy 3.? Continue q-15 minute check for safety 4.? Recommend sober living treatment at the highest level of care to which the patient is willing to commit. 5. Discharge tommorow. Involuntary Hold Information 96 Hour Hold: 96 Hour Involuntary Admission: No Attestations NPU Medical Necessity Statement*: Inpatient hospitalization is medically necessary and the clinically appropriate intervention at this time. We will monitor medications and make changes as indicated.? Discharge tommorow. 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
[2021-11-14 14:00] VITALS: BP 113/65; PULSE 90; RESP 18; TEMP 37.1; O2SAT 92
--- NOTE | 2021-11-14 16:10 | DCPLANNER ---
Client was given IMM and explained rights. Was added to his chart.
[2021-11-14] MEDS: risperiDONE 1 mg Tablet 3 MG PO (19:20)
[2021-11-14 19:52] VITALS: BP 112/75; PULSE 83; RESP 16; TEMP 36.6; O2SAT 94
[2021-11-14] MEDS: hyDROXYzine 25 mg Capsule 50 MG PO (20:46)
--- NOTE | 2021-11-14 22:23 | PC.NURSE ---
PRN MED PT GIVEN 50MG VISTARIL FOR STATED ANXIETY, WILL CONTINUE TO MONITOR.
[2021-11-15 06:00] VITALS: BP 110/72; PULSE 78; RESP 16; TEMP 36.6; O2SAT 98
--- NOTE | 2021-11-15 08:19 | W.PM.NPUDCS ---
Diagnoses at Discharge Discharge Diagnosis (1) Psychotic disorder: Status: Resolved (2) Methamphetamine use disorder, severe: Status: Resolved (3) PTSD (post-traumatic stress disorder): Status: Resolved (4) Stimulant-induced mood disorder with depressive symptoms: Status: Resolved (5) Stimulant-induced psychotic disorder: Status: Resolved Reason for Visit Reason for Visit: hour hold Brief History: Agusto Madrid is a 60 year old male who presented to the outside hospital with issues of suicidal ideation, behavior and drug use.? He was transferred to [facility] and initially admitted to the neuropsychiatric unit but within moments of being admitted he had a fall and rapid response called.? He was taken to the ICU and monitored for couple days and now has been transferred back to the neuropsychiatric unit for definitive treatment of his psychiatric issues. He presents today reporting that he feels as if people are following him around. He reports he does not have any known allergies to medications and is not currently taking any psychiatric medications. He reports that he has been psychiatrically hospitalized 10 to 15 times from 2004 up to a couple of months ago at this facility. He reports suicide attempts and did not report any self-injurious behaviors when questioned. He denies any homicidal ideation. He reports that the longest time he was inpatient was 2.5 to 3 weeks due to a suicide attempt. He reports he had outpatient services in the past but could not recall how long it has been since he has seen them. He reports he is currently clean but reports methamphetamine and heroin which he last used 4 to 5 day ago and 5 months ago respectively. He reports half a pack of cigarettes a day and drinks alcohol occasionally. He denies any medications for addiction treatment and endorses that he can do it on his own. He reports he began first using around 25 years old. He reports that he was feeling that people were following him for his protection and reports recent methamphetamine use. He endorses continuing paranoia even when he is not actively using methamphetamine. He reports that he was told that he has people following him by police in [place] and if the patient told this commercial real estate underwriter how he was in communication he would be going to [facility]. He endorses feelings of depression and reports the voices are telling him to hurt himself. He endorses problems with sleeping and endorses he doesn?t sleep at night. He reports the voices have gotten worse over time and reports he wants to return to [place]. Psychiatric History: As above. Substance Abuse History: As above Family History: He denies mental health issues or addiction issues on either side of the family. Developmental History: He did not report any developmental problems or learning delays during the interview with this commercial real estate underwriter. Psychosocial History: He reports his parents weren?t together when he was born and he did not know his biological father. He reports he has 8 siblings who are products of the same union. He denies any emotional, physical or sexual abuse in his childhood. He denies any other traumatic events. The highest grade he achieved was 8th grade and did not get his GED. He has been and once, has children in their late 30s, . 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 He is currently homeless. Legal History: He has been incarcerated for a total of 37 years ago, the last time of which was 5 years ago and the longest time of which was 6 years. Medical History: He reports he has had surgery on femur bone. Hospital Course Hospital Course During the hospitalization, patient had routine laboratory studies which were within normal limits except for few outliers. Additionally there was a general medical evaluation which was also within normal limits and revealed no new acute processes. Discharge Summary: At the time of discharge, lethality was denied and psychosis was resolving. Mood and anxiety were well managed. Patient endorsed a plan to avoid all drugs of abuse and follow-up with the aftercare recommendations of the treatment team. Patient was evaluated and deemed to be absent credible lethality, and had achieved the maximum benefit from an inpatient hospitalization, so was discharged. Involuntary Hold Information 96 Hour Hold: 96 Hour Involuntary Admission: No Mental Status Exam MSE Comments: His hygiene appeared to be better today? He was alert and oriented to person and place. ? He described his mood as good.? His affect appeared blunted still.? ? His thought process appeared to show less derailment.? No overt delusions appreciated? ? He did not appear to have as much thought blocking.? There was no active homicidal or suicidal ideation.? He did not appear to be actively responding to internal stimuli today.? His insight and judgment appeared improved. Discharge Data Studies Completed and Pending: Completed Studies During Hospitalization Category Date Time Status CT head wo con* [id number] Stat Cat Scan 10/28/21 12:57 Completed XR chest 1V marely ble [id number] Routine Exams 10/28/21 14:29 Completed Radiology Impressions Head CT 10/28/21 12:57 IMPRESSION: No acute intracranial abnormality. Chest X-Ray 10/28/21 14:29 IMPRESSION: No acute findings. Laboratory Results WBC 8.5 10^3/uL (4.0- 10.0) 10/29/21 04:44 RBC 5.26 10^6/uL (4.1 -5.3) 10/29/21 04:44 Hgb 14.1 g/dL (11.7-1 6.6) 10/29/21 04:44 Hct 43.4 % (42.0-52.0 ) 10/29/21 04:44 MCV 82.5 fl (80-94) 10/29/21 04:44 MCH 26.8 pg (28.0-34. 0) L 10/29/21 04:44 MCHC 32.5 g/dL (30.0-3 6.0) 10/29/21 04:44 RDW 14.2 % (12.1-15.1 ) 10/29/21 04:44 Plt Count 279 10^3/cmm (130 -400) 10/29/21 04:44 MPV 9.3 fL (7.4-10.4) 10/29/21 04:44 Neut % (Auto) 67.6 % 10/29/21 04:44 Lymph % (Auto) 19.0 % 10/29/21 04:44 Stafford % (Auto) 8.9 % 10/29/21 04:44 Eos % (Auto) 3.5 % 10/29/21 04:44 Baso % (Auto) 0.5 % 10/29/21 04:44 Neut # (Auto) 5.73 10^3/uL (1.8 -7.7) 10/29/21 04:44 Lymph # (Auto) 1.6 10^3/uL (0.8- 4.8) 10/29/21 04:44 Stafford # (Auto) 0.8 10^3/uL (0.2- 0.9) 10/29/21 04:44 Eos # (Auto) 0.3 10^3/uL (0.0- 0.8) 10/29/21 04:44 Baso # (Auto) 0.0 10^3/uL (0.0- 0.1) 10/29/21 04:44 Nucleated RBC % (a uto) 0 % 10/29/21 04:44 Nucleated RBCs # 0.0 /100WBC 10/29/21 04:44 Specimen Type Arterial 10/28/21 12:47 Sample Site Brachial, left 10/28/21 12:47 ABG pH 7.41 (7.35-7.45) 10/28/21 12:47 ABG pCO2 52.1 mmHg (35-45) H 10/28/21 12:47 ABG pO2 76.4 mmHg (80.0-1 00.0) L 10/28/21 12:47 ABG HCO3 32.9 mmol/L (22-2 6) H 10/28/21 12:47 ABG O2 Saturation 96.1 10/28/21 12:47 ABG Base Excess 6.9 mmol/L (-2.0- 2.0) H 10/28/21 12:47 Leoncio Test Pos 10/28/21 12:47 A-a O2 Gradient 1.2 mmHg (5-10) L 10/28/21 12:47 Hematocrit 39.5 % (42-52) L 10/28/21 12:47 Hgb O2 Saturation 92.9 % (95-100) L 10/28/21 12:47 Carboxyhemoglobin 2.5 %THgb (0.4-20 .1) 10/28/21 12:47 Methemoglobin 0.8 % (0.4-1.5) 10/28/21 12:47 Total Hemoglobin 12.9 g/dL (14-18) L 10/28/21 12:47 Sodium 141.0 mmol/L (131 -143) 10/28/21 12:47 Potassium 3.7 mmol/L (3.5-5 .0) 10/28/21 12:47 Glucose 86.0 mg/dL (70-11 5) 10/28/21 12:47 Ionized Calcium 1.2 mmol/L (1.1-1 .4) 10/28/21 12:47 O2 Delivery Device Nc 10/28/21 12:47 Stem Mounter ID Cak 10/28/21 12:47 Sodium 139 mmol/L (136-1 45) 10/29/21 04:44 Potassium 3.8 mmol/L (3.5-5 .1) 10/29/21 04:44 Chloride 99 mmol/L (98-107 ) 10/29/21 04:44 Carbon Dioxide 31 mmol/L (22-29) H 10/29/21 04:44 Anion Gap 12.8 (5-19) 10/29/21 04:44 BUN 10 mg/dL (8-23) 10/29/21 04:44 Creatinine 0.6 mg/dL (0.7-1. 2) L 10/29/21 04:44 GFR Calculation 136.5 mL/min (90- 130) H 10/29/21 04:44 Glucose 89 mg/dL (65-115) 10/29/21 04:44 Estimat Average Gl ucose 111 10/28/21 13:36 Hemoglobin A1c 5.5 % (4.0-6.0) 10/28/21 13:36 Calculated Osmolal ity 287 mOsm/kg (285- 295) 10/29/21 04:44 Lactic Acid 0.7 mmol/L (0.5-2 .2) 10/28/21 13:36 Calcium 8.6 mg/dL (8.5-10 .5) 10/29/21 04:44 Total Bilirubin 0.3 mg/dL (0.15-1 .2) 10/28/21 13:36 AST 39 U/L (0-40) 10/28/21 13:36 ALT 25 U/L (0-41) 10/28/21 13:36 Alkaline Phosphata se 86 IU/L (40-130) 10/28/21 13:36 Ammonia 23 umol/L (16-60) 10/28/21 13:36 Troponin T Baselin e 6 ng/L (0-15) 10/28/21 13:36 Troponin T 120 Min [place] 6.00 ng/L (0-15) 10/28/21 15:16 Delta Troponin T 0 ABS# (0-10) 10/28/21 15:16 Troponin T Hi Sens 6Hr 6.00 ng/L (0-15) 10/28/21 17:55 Troponin T Hi Sens 6Hr Delta 0 ng/L (0-12) 10/28/21 17:55 Total Protein 7.2 g/dL (6.6-8.7 ) 10/28/21 13:36 Albumin 3.7 g/dL (3.5-5.2 ) 10/28/21 13:36 Globulin 3.5 g/dL (1.3-4.6 ) 10/28/21 13:36 Vitamin B12 346 pg/mL (232-12 45) 10/29/21 04:44 TSH 1.83 uIU/mL (0.27 -4.20) 10/28/21 15:16 Prolactin 45.29 ng/mL (4.0- 15.2) H 10/28/21 13:36 Urine Color Yellow (Yellow) 10/28/21 14:36 Urine Appearance Clear (CLEAR) 10/28/21 14:36 Urine pH 7 (5-7) 10/28/21 14:36 Ur Specific Gravit y 1.010 (1.005-1.0 30) 10/28/21 14:36 Urine Protein Neg (Negative) 10/28/21 14:36 Urine Glucose (UA) Norm (Normal) 10/28/21 14:36 Urine Ketones Negative (Negati ve) 10/28/21 14:36 Urine Blood Neg (Negative) 10/28/21 14:36 Urine Nitrate Negative (Negati ve) 10/28/21 14:36 Urine Bilirubin Neg (Negative) 10/28/21 14:36 Urine Urobilinogen Norm mg/dL (Negat kirk) 10/28/21 14:36 Ur Leukocyte Jesica ase Negative (Negati ve) 10/28/21 14:36 Urine Opiates Scre en Negative ng/mL (N egative) 10/28/21 14:36 Ur Barbiturates Sc reen Negative ng/mL (N egative) 10/28/21 14:36 Ur Phencyclidine S crn Negative ng/mL (N egative) 10/28/21 14:36 Ur Amphetamines Sc reen Positive ng/mL (N egative) H 10/28/21 14:36 U Benzodiazepines Scrn Positive ng/mL (N egative) H 10/28/21 14:36 Urine Cocaine Scre en Negative ng/mL (N egative) 10/28/21 14:36 U Marijuana (THC) Screen Positive ng/mL (N egative) H 10/28/21 14:36 Ethyl Alcohol < 10 mg/dL (0-10) 10/28/21 13:36 Vitals: Last Vital Signs Temp 98 F 11/15/21 08:55 Pulse 78 11/15/21 08:55 Resp 16 11/15/21 08:55 BP 110/72 11/15/21 08:55 Pulse Ox 98 11/15/21 08:55 Discharge Plan Discharge Patient Disposition: Home Condition: Stable Prescriptions: New risperidone 1 mg Tablet 3 mg PO BEDTIME 30 Days Qty: 30 1RF Discontinued trazodone 50 mg Tablet 50 mg PO BEDTIME PRN (Reason: Sleep) 30 Days Qty: 30 1RF paliperidone 6 mg Tablet Extended Release 24hr 6 mg PO DAILY 30 Days Qty: 30 1RF Discharge Orders: Discharge Order (Routine); Ordered 11/15/21 Ordered By: Devin Antony Referrals: [facility] [Outside] - 12/11/21 10:40 am (Phone interview with Dr Johnson) Discharge Diet: Usual diet Discharge Activity: Resume usual activity Patient Instructions: Risperidone (By mouth), Mood Disorders (DC), Methamphetamine Use Disorder (DC), Psychotic Disorder (DC), Opioid Safety Discharge Attestations NPU Time Spent in Discharge Care*: less than 30 min Coding Level of Care Code Established Pt Acute Chg FW DC note Patient Type Established History Problem Focused Exam Problem Focused Medical Decision Making Straight Forward Diagnoses Psychotic disorder F29 Methamphetamine use disorder, severe F15.20 PTSD (post-traumatic stress disorder) F43.10 Stimulant-induced mood disorder with depressive symptoms F15.94 Stimulant-induced psychotic disorder F15.959
[2021-11-15] MEDS: folic acid 1 mg Tablet PO (08:53)
[2021-11-15] MEDS: thiamine 100 mg Tablet PO (08:53)
[2021-11-15] MEDS: multivitamin therapeutic Tablet 1 TAB PO (08:53)
[2021-11-15 08:55] VITALS: BP 110/72; PULSE 78; RESP 16; TEMP 36.6; O2SAT 98
--- NOTE | 2021-11-15 09:11 | PC.NURSE ---
PT DC, PT TO [facility] [place], PT GIVEN DC INSTRUCTIONS, ORDERED MED GIVEN WITH EDUCATION ON MEDS AND FU AFTERCARE IN [place], PT VERB UNDERSTANDING, PT GIVEN DONATED BACK PACK AT DC, PT CALM AND READY TO LEAVE UNIT
== END 2021-11-15 09:20 | disposition home or self-care (01) | DRG 897 ==
LOC: NP 12:06 → ICU 13:16 → NP 10-29 13:54
PROVIDERS: Admitting Provider Internal Medicine; Visit Provider Psychiatry & Neurology Psychiatry
DX: F15.250 Other stimulant dependence with stimulant-induced psychotic disorder with delusions (principal); F33.9 Major depressive disorder, recurrent, unspecified; F15.24 Other stimulant dependence with stimulant-induced mood disorder; F15.251 Other stimulant dependence with stimulant-induced psychotic disorder with hallucinations; F43.10 Post-traumatic stress disorder, unspecified; J44.9 Chronic obstructive pulmonary disease, unspecified; R41.0 Disorientation, unspecified; F17.210 Nicotine dependence, cigarettes, uncomplicated; R13.10 Dysphagia, unspecified; F06.1 Catatonic disorder due to known physiological condition; R47.1 Dysarthria and anarthria; Z59.00 Homelessness unspecified; Z91.51 Personal history of suicidal behavior; Z99.81 Dependence on supplemental oxygen; Z79.891 Long term (current) use of opiate analgesic
CPT/HCPCS: 36415; 36600; 70450; 71045; 80048; 80051; 80053; 80306; 80307; 81003; 82140; 82330; 82607; 82805; 83036; 83605; 84146; 84443; 84484; 85025; 92523; 92526; 92610; 93005; 94664; 97150; 97165; J1953; J2310; J3411